=== PATIENT | female | born 2000 | race Hispanic/Latino ===

== ENCOUNTER 2021-05-26 14:27 | Outpatient (CLI) | payer OTHER, SELFPAY ==
--- NOTE | ~2021-05-26 | US_ITS ---
EXAMINATION: US OB <= 14 weeks fetus DATE: 05/26/2021 15:11 INDICATION: Routine care, first trimester TECHNIQUE: Real-time pelvic transabdominal and transvaginal ultrasound was performed. COMPARISON: None. FINDINGS: The uterus measures 15.7 x 10.3 x 6.1 cm. There is an intrauterine gestational sac. A yolk sac is identified. heart motion is identified measuring 144 beats per minute (bpm) by M-mode D oppler. The crown rump length measures 6.9 cm , which correlates with an estimated gestational age of 13 weeks and 1 day(s) (+/-) 8 day(s). The right ovary measures 3.8 x 3.5 x 2.0 cm. The left ovary measures 4.1 x 2.9 x 1.9 cm. There is nor mal vascular flow in the ovaries. There is no free fluid in the pelvis. IMPRESSION: 1. Live intrauterine with an estimated gestational age of 13 weeks and 1 day(s) (+/-) 8 day (s) and an estimated delivery date of 11/30/2021. Reviewed, dictated and finalized at location B. GER [employer] IMPRESSION: 1. Live intrauterine with an estimated gestational age of 13 weeks an d 1 day(s) (+/-) 8 day(s) and an estimated delivery date of 11/30/2021.
== END 2021-05-26 14:28 | disposition home or self-care (01) ==
LOC: ANHIMG 14:33
PROVIDERS: PCP Physician Assistant; Visit Provider Obstetrics & Gynecology
DX: Z34.91 Encounter for supervision of normal pregnancy, unspecified, first trimester (principal); Z3A.13 13 weeks gestation of pregnancy
CPT/HCPCS: 76801

== ENCOUNTER 2021-06-16 16:50 | Emergency (ER) | payer OTHER, SELFPAY ==
[2021-06-16 17:00] VITALS: BP 121/63; PULSE 71; RESP 16; TEMP 36.5; O2SAT 100
[2021-06-16 18:55] VITALS: BP 128/63; PULSE 76; RESP 16; TEMP 36.6; O2SAT 100
--- NOTE | 2021-06-16 20:33 | ED.FALL ---
HPI - Fall General Chief Complaint: Fall Stated Complaint: fall/15 weeks ,groin paon Time Seen by Provider: 06/16/21 20:30 Source: patient History of Present Illness HPI Narrative: Patient presents after ground level fall. She approximatly 15 wks by US . Patient was walking at work taking to her friend when she tripped on a pole and fell to the ground landiing on the R hip. She denies striking her head or any LOC. She denies vaginal bleeding, she reports her pain is improving since the incedent. she denies difficulty ambulating, focal numbness or weakness. She has seen her OB for her initial appointment and is Rh + Related Data Allergies Allergy/AdvReac Type Severity Reaction Status Date / Time No Known Allergies Allergy Unverified 11/22/17 14:00 Review of Systems Review of Systems: All systems reviewed & are unremarkable except as noted in HPI and below PMFSH Past Medical History Medical History (Updated 06/16/21 @ 20:47 by Oli Julian MD) Patient denies significant medical history Social History Social History (Updated 06/16/21 @ 20:36 by Oli Julian MD) Smoking status: Never smoker Exam Const: General: no acute distress Orientation/consciousness: patient oriented x3 HENMT: Head: normal to inspection Ears: external ears normal Mouth: Yes lip normal Eyes: Conjunctivae: conjunctivae normal Pupils: Equal, round and reactive pupils present EOM: EOMs intact bilaterally Neck: Neck: normal visual inspection Chest: Chest palpation & inspection: normal inspection of the chest Resp: Effort & Inspection: normal respiratory effort and not tachypneic Cardio: Rate: regular rate Rhythm: regular rhythm GI: Inspection: non-distended GI Palp: Yes Soft to palpation, No Tenderness to palpation present (GI), No Guarding due to palpation present (GI) and No Rigid due to palpation Skin: General skin exam: normal color and no jaundice Rashes: no rashes Wounds: no wounds Neuro: General: patient oriented x3 and moves all extremities Speech: normal speech Gait exam (Neuro): Normal gait present Extrem: General: normal to inspection and pedal edema present Psych: Mental Status: mental status grossly normal Affect: normal affect Course Vital Signs Vital signs: Vital Signs Temperature 36.5 C 06/16/21 17:00 Pulse Rate 71 06/16/21 17:00 Respiratory Rate 16 06/16/21 17:00 Blood Pressure 121/63 06/16/21 17:00 Pulse Oximetry 100 06/16/21 17:00 Temperature 36.6 C 06/16/21 18:55 Pulse Rate 72 06/16/21 20:58 Respiratory Rate 16 06/16/21 20:58 Blood Pressure 112/60 06/16/21 20:58 Pulse Oximetry 100 06/16/21 20:58 MDM - Fall MDM Narrative Medical decision making narrative: H&P as above, vss, pt looks clinically well, exam w/o acute abdomen, FHR of 145 on doppler, additional labs/img considered, symptomatic relief available as needed, on reevaluation pt continues to looks clinically well. Suspect mechanical event with contusion, dns abruption, fracture, dislocation, major neurovascular compromise. plan to tx/monitor as op w/ pcm f/u findings/plan discussed with pt, pt agree/comfortable with plan, return precautions given Discharge Plan Discharge Clinical Impression: Fall Qualifiers: Encounter type: initial encounter Qualified Code(s): W19.XXXA - Unspecified fall, initial encounter Patient Disposition: Home, Self-Care Condition: Improved Instructions: Antibiotic Form, Contusion in Adults (ED) Additional Instructions: Please return if your symptoms worsen or fail to improve. If you develop a fever, can not eat/drink anything or if you have any other concerns. Please follow up with your OB Follow-up/Referrals: Andrew,MARINO Woody [Primary Care Provider] - Time of Disposition: 20:47
[2021-06-16 20:58] VITALS: BP 112/60; PULSE 72; RESP 16; O2SAT 100
== END 2021-06-16 21:04 | disposition home or self-care (01) ==
LOC: ANHED 21:02
PROVIDERS: Emergency Provider Emergency Medicine; PCP Physician Assistant
DX: O9A.212 Injury, poisoning and certain other consequences of external causes complicating pregnancy, second trimester (principal); R10.30 Lower abdominal pain, unspecified; Z3A.15 15 weeks gestation of pregnancy; W18.39XA Other fall on same level, initial encounter
CPT/HCPCS: 99282

== ENCOUNTER 2022-05-04 09:23 | Outpatient (CLI) | payer OTHER, SELFPAY ==
--- NOTE | ~2022-05-04 | US_ITS ---
EXAMINATION: US right upper quadrant DATE: 05/04/2022 09:56 INDICATION: Right upper quadrant pain TECHNIQUE: Multiple grayscale and Doppler ultrasound images of the abdomen were obtained. COMPARISON: None available FINDINGS: The head, body, and tail of the pancreas are normal. The liver demonstrates increased echog enicity, heterogenous echotexture, and decreased through transmission. No surface nodularity. Normal hepatopetal flow in the main portal vein. Stones and sludge are present in the nondistended gallbladd er. There is no gallbladder wall thickening or pericholecystic fluid. The normal common bile duct radha sures 3 mm. There was no sonographic Ruiz sign. IMPRESSION: 1. Stones and sludge in the otherwise normal gallbladder. 2. Diffuse hepatic steatosis. Reviewed, dictated and finalized at location B.
== END 2022-05-04 09:24 | disposition home or self-care (01) ==
PROVIDERS: PCP Physician Assistant; Visit Provider Physician Assistant
DX: R74.8 Abnormal levels of other serum enzymes (principal); K76.0 Fatty (change of) liver, not elsewhere classified
CPT/HCPCS: 76705

== ENCOUNTER 2023-01-21 14:27 | Outpatient (CLI) | payer OTHER, SELFPAY ==
--- NOTE | ~2023-01-21 | CT_ITS ---
EXAMINATION: CT soft tissue neck w con DATE: 01/21/2023 14:51 INDICATION: Acute sialadenitis. Submandibular swelling. TECHNIQUE: Computed tomography (CT) of the neck was performed with 75 mL Omnipaque-350 intravenous co ntrast. Automated exposure control and iterative reconstruction technique were employed. The dose-johann gth product was 626.48 mGy-cm. COMPARISON: None FINDINGS: There is mild bilateral high internal jugular chain lymphadenopathy. A skin marker overlies a mildly enlarged submandibular lymph node at the midline measuring 14 x 10 mm. The cervical carotid arteries are normal. The major salivary glands are normal. No sialolith. There is a mucous retention cyst in left maxillary sinus. The mastoid air cells are normal. Median sternotomy wires are noted. IMPRESSION: 1. Mild bilateral cervical lymphadenopathy, likely reactive. Reviewed, dictated and finalized at location E.
== END 2023-01-21 14:28 | disposition home or self-care (01) ==
PROVIDERS: PCP Physician Assistant; Visit Provider Physician Assistant
DX: K11.21 Acute sialoadenitis (principal); R59.0 Localized enlarged lymph nodes
CPT/HCPCS: 70491; Q9967

== ENCOUNTER 2023-12-28 12:21 | Inpatient (IN) | payer OTHER, SELFPAY ==
--- NOTE | ~2023-12-28 | US_ITS ---
US right upper quadrant DATE: 12/28/2023 13:30 INDICATION: Abdominal pain TECHNIQUE: Real-time imaging of the liver, pancreas, gallbladder COMPARISON: 05/04/2022 right upper quadrant abdominal ultrasound examination FINDINGS: Hepatic steatosis. No hepatic space-occupying mass lesion is evident. Normal hepatopedal po rtal venous flow direction. There are small stones in the dependent aspect of the gallbladder, shadowing. No gallbladder wall thi ckening or abnormal pericholecystic fluid collection. Negative sonographic Ruiz sign. The common bile duct measures 5 mm, within normal limits. IMPRESSION: Cholelithiasis Hepatic steatosis Reviewed, dictated and finalized at Location A. Reviewed, dictated and finalized at location A.
--- NOTE | ~2023-12-28 | XR_ITS ---
EXAMINATION: XR ERCP DATE: 12/31/2023 13:00 CDT INDICATION: POSSIBLE STONES . TECHNIQUE: 2 fluoroscopic images of the right upper quadrant were obtained during ERCP, performed by Dr. Santiago. I was not present during the procedure. Fluoroscopy exposure time was 79.1 secon ds. Air Kerma 27.28 mGy. DAP [id number] mGym2. COMPARISON: 12/30/2023 FINDINGS/IMPRESSION: Fluoroscopic documentation of ERCP. Please refer to the operative note for complete procedural detail s . Reviewed, dictated and finalized at location K.
--- NOTE | ~2023-12-28 | XR_ITS ---
EXAMINATION: XR cholangiogram surg 1st inj DATE: 12/30/2023 09:20 INDICATION: Cholelithiasis. TECHNIQUE: 170 fluoroscopic images of the right upper quadrant were obtained during intraoperative ch olangiography performed by the surgeon. I was not present in the operating room. Fluoroscopy exposure time was 25 seconds. COMPARISON: Abdomen ultrasound 12/28/2023 FINDINGS: There is a catheter in the cystic duct. There is mild intrahepatic and extrahepatic biliary duct dilatation. There is a 5 mm stone in the distal common bile duct. A small volume of contrast pa sses to the duodenum. IMPRESSION: 1. 5 mm stone in the distal common bile duct with mild intrahepatic and extrahepatic biliary duct dil atation. Reviewed, dictated and finalized at location E. IMPRESSION: 1. 5 mm stone in the distal common bile duct with mild intrahepatic and extrahe patic biliary duct dilatation.
[2023-12-28 12:34] VITALS: BP 115/63; PULSE 78; RESP 16; TEMP 36.9; O2SAT 98
[2023-12-28 13:14] LABS: Basophils Percent Auto 0.2 % (0.2-1.2); Eosinophils Percent Auto 0.3 % (0-4.4); Hematocrit 38.5 % (37.0-47.0); Hemoglobin 13.3 g/dL (12.0-15.0); Immature Granulocyte Absolute 0.07 K/mm3 (0.00-0.031); Immature Granulocyte Percent A 0.5 % (0-0.5); Lymphocytes Percent Auto 10.6 % (18.3-44.2); Mean Corpuscular HGB Conc 34.5 g/dl (32-36); Mean Corpuscular Volume 86.7 fl (80-100); Monocytes Absolute Auto 0.5 K/mm3 (0.1-0.6); Monocytes Percent Auto 3.5 % (2.6-8.5); Neutrophils Percent Auto 84.9 % (45.5-73.1); Platelet Count Result 292 k/mm3 (150-375); Red Blood Count 4.44 M/mm3 (4.2-5.4); White Blood Count 14.1 K/mm3 (4.5-10.0)
[2023-12-28 13:25] LABS: Alanine Aminotransferase 151 U/L (6-35); Albumin Level 4.6 g/dL (3.5-5.1); Alkaline Phosphatase 77 U/L (38-126); Anion Gap 10 mmol/L (4-12); Aspartate Amino Transferase 141 U/L (14-36); Blood Urea Nitrogen 13 mg/dL (7-17); Carbon Dioxide 24 mmol/L (22-30); Chloride 104 mmol/L (98-107); Estimated CRCL calculation 157 ml/min; Estimated Glomerular Filt Rate > 60; Glucose 124 mg/dL (65-110); Lipase 89 U/L (23-300); Potassium 3.8 mmol/L (3.4-5.0); Sodium 138 mmol/L (137-145)
--- NOTE | 2023-12-28 15:00 | ED.ABDPAIN ---
HPI - Abdominal Pain General Chief Complaint: Abdominal Pain Stated Complaint: epigastric pain Time Seen by Provider: 12/28/23 12:44 History of Present Illness HPI narrative: Patient is a 23-year-old female who presents ER with epigastric and right upper quadrant pain. Intermittent over last couple days but persistent today. Worse after eating foods. No fevers or chills. Has known gallbladder stones but has not made an appointment to have her gallbladder removed. Related Data Allergies Allergy/AdvReac Type Severity Reaction Status Date / Time No Known Allergies Allergy Unverified 10/23/22 08:29 Review of Systems Review of Systems: All systems reviewed & are unremarkable except as noted in HPI and below Constitutional: Constitutional: Reports no additional constitutional complaints Cardiovascular: Cardiovascular: Reports no additional cardiovascular complaints Respiratory: Respiratory: Reports no additional respiratory complaints Gastrointestinal: Gastrointestinal: Reports abdominal pain, Denies diarrhea, Denies nausea and Denies vomiting Genitourinary: Genitourinary: Reports no additional female genitourinary complaints Integumentary/Breasts: Skin/Breast: Reports system reviewed and no additional complaints, except as docu [facility] Past Medical History Medical History (Updated 12/28/23 @ 15:58 by Juan Antonio Ron MD) Patient denies significant medical history Surgical History Surgical History (Updated 12/28/23 @ 15:56 by Juan Antonio Ron MD) No history of previous surgery Social History Social History (System 10/23/22 @ 08:29 by Michael Prabhakar) Smoking status: Never smoker Exam Narrative: GENERAL: Well-appearing, obese, and in no acute distress. HEAD: Normocephalic, atraumatic. ENT: Mucous membranes moist. CHEST: Clear to auscultation. No respiratory distress. HEART: Regular rate and rhythm. Normal peripheral pulses. ABDOMEN: Soft, tender palpation right upper quadrant with guarding as well as epigastrium, nondistended, normal active bowel sounds. EXTREMITIES: Normal range of motion. No edema. SKIN: Warm, dry, no rash. NEURO: Alert and oriented x3. PSYCH: Normal mood and affect. Course Course Emergency Course: Persistent pain despite pain medication. Discussed with General surgery. Admit for observation with IV antibiotics. Clear liquid diet. Vital Signs Vital signs: Vital Signs Temperature 98.4 F 12/28/23 12:34 Pulse Rate 78 12/28/23 12:34 Respiratory Rate 16 12/28/23 12:34 Blood Pressure 115/63 12/28/23 12:34 Pulse Oximetry 98 12/28/23 12:34 Oxygen Delivery Room Air 12/28/23 12:34 Temperature 98.4 F 12/28/23 12:34 Pulse Rate 76 12/28/23 15:27 Respiratory Rate 18 12/28/23 15:27 Blood Pressure 127/78 12/28/23 15:27 Pulse Oximetry 100 12/28/23 15:27 Oxygen Delivery Room Air 12/28/23 12:34 MDM - Abdominal Pain Lab Data 12/28/23 13:00 12/28/23 13:00 Labs: Lab Results 12/28/23 Range/Units 13:00 WBC 14.1 H (4.5-10.0) K/mm3 RBC 4.44 (4.2-5.4) M/mm3 Hgb 13.3 (12.0-15.0) g/dL Hct 38.5 (37.0-47.0) % MCV 86.7 (80-100) fl MCH 30.0 (26-34) pg MCHC 34.5 (32-36) g/dl RDW 12.0 (11.5-14.5) % Plt Count 292 (150-375) k/mm3 MPV 9.0 (7.4-10.4) fl Immature Gran % (Auto) 0.5 (0-0.5) % Neut % (Auto) 84.9 H (45.5-73.1) % Lymph % (Auto) 10.6 L (18.3-44.2) % Wake % (Auto) 3.5 (2.6-8.5) % Eos % (Auto) 0.3 (0-4.4) % Baso % (Auto) 0.2 (0.2-1.2) % Lymph # (Auto) 1.50 (0.9-3.2) K/mm3 Wake # (Auto) 0.5 (0.1-0.6) K/mm3 Eos # (Auto) 0.0 (0-0.3) K/mm3 Baso # (Auto) 0.0 (0.0-0.1) K/mm3 Abs Immat Gran (auto) 0.07 H (0.00-0.031) K/mm3 Absolute Neuts (auto) 12.0 H (1.3-6.7) K/mm3 Absolute Nucleated RBC 0.000 (0.0-0.012) K/mm3 Nucleated RBC % 0.0 (0.0-0.2) % Sodium 138 (137-145) mmol/L Potassium 3.8 (3.4-5.0) mmol/L Chloride 104 (98
[2023-12-28 15:27] VITALS: BP 127/78; PULSE 76; RESP 18; O2SAT 100
[2023-12-28] MEDS: metroNIDAZOLE 500 MG/ISO 100ML 500 MG/100 ML BAG 100 MG IVPB ×2 (15:30→23:22)
[2023-12-28] MEDS: MORPHINE SULFATE (*CRX) 4 MG/ML INJ IV PUSH (15:34)
--- NOTE | 2023-12-28 16:11 | ADMGEN ---
This patient, Michelle Patino, was admitted to [facility] Surg Room 309-01. Patient/family oriented to hospital policies and general routines including ID bracelet, bed and alarms, visiting hours, pain management, procedures, bathroom and other care routines, personal items, smoking policy, room service/diet, and visiting hours. Information on how to activate the Rapid Response Team has been discussed. Patient/Family are encouraged to report perceived risks to care and to ask questions if they do not understand what they are told or what they should do.
[2023-12-28 16:32] VITALS: BP 116/59; PULSE 77; RESP 16; TEMP 36.7; O2SAT 99; BMI 46.5
[2023-12-28 20:00] VITALS: PULSE 77; RESP 16; O2SAT 99
[2023-12-28] MEDS: MORPHINE SULFATE (*CRX) 2 MG/ML INJ IV PUSH (20:29)
--- NOTE | 2023-12-28 20:59 | PC.NURSE ---
When I entered the room at approximately 2034 to give pt requested pain med, there were literally 10 people in the room with several screaming children. Pt in adjacent rooms were complaining about the shrieking children. I very politely asked if they were aware that visiting ended at 8pm. They stated that they were about to leave. One of the people in the room indicated that she was planning on spending the night. I explained that special permission from the supervisor tank house would have to be gotten and then she would have to register downstairs as an overnight visitor. She stated she would leave. I administered the pain med asked pt if there was anything else that I could do for her and made her aware that I would be back to give an IV antibiotic around midnight. Pt said that she was good.
[2023-12-28 22:00] VITALS: BP 126/60; PULSE 71; RESP 16; TEMP 36.6; O2SAT 97
[2023-12-29 04:59] VITALS: BP 116/66; PULSE 85; RESP 16; TEMP 36.4; O2SAT 99
[2023-12-29] MEDS: MORPHINE SULFATE (*CRX) 2 MG/ML INJ IV PUSH ×3 (08:44→21:13)
[2023-12-29] MEDS: metroNIDAZOLE 500 MG/ISO 100ML 500 MG/100 ML BAG 100 MG IVPB ×3 (08:45→21:08)
--- NOTE | 2023-12-29 12:53 | PM.IMHP ---
H&P: HPI History of Present Illness Date/Time: 12/29/23 12:53 Chief Complaint: Epigastric pain Narrative: This is a 23-year-old woman who presented to the emergency department yesterday with epigastric pain that started the night before. She states that she had eaten dinner and shortly after that began experiencing the epigastric pain. She took some [id number] Pepto-Bismol and felt a little bit better and was able to sleep that night. She had gone to the gym Saturday morning and ate a rice crispy treat and began experiencing worsening constant pain. Her pain has persisted since being admitted. She denied any fevers or chills. She was experiencing nausea with vomiting. She denies any change in bowel habits. Patient had been having some mild pains like this over the past year but nothing this severe. In the emergency department she was noted to have an elevated white blood count and slightly elevated liver enzymes. She denies any prior history of liver problems. Review of Systems Review of Systems: All systems reviewed & are unremarkable except as noted in HPI and below Constitutional: Constitutional: Denies chills and Denies fever(s) Eyes: Eyes: Denies change in vision ENT: Denies hearing loss, Denies neck pain and Denies sore throat Cardiovascular: Cardiovascular: Denies chest pain and Denies dyspnea Respiratory: Respiratory: Denies cough, Denies dyspnea and Denies wheezing Gastrointestinal: Gastrointestinal: Reports as per HPI Genitourinary: Genitourinary: Denies hematuria and Denies dysuria Musculoskeletal: Musculoskeletal: Denies arthralgias, Denies joint swelling and Denies neck pain Allergic/Immunologic: Allergic/Immunologic: Denies wheezing [facility] Surgical History Surgical History History of ventricular septal defect repair Family History Family History Mother Thyroid cancer Social History Social History Smoking status: Never smoker Alcohol intake: current Drinks per week: 1 Substance use: never Do You Feel Safe in your Home?: Yes Lack of Transportation: No Lack of Food: Never True Current Housing: I Have Housing Concerned About Future Housing: No Difficulty Paying Gas/Electric Bills: No Difficulty Paying for Meds: No Currently Unemployed: No Education: Associate Degree Difficulty w/ Childcare or Family Care: No Spiritual care concerns: No Meds Home Medications and Allergies Home Medications Medication Instructions Recorded Confirmed Type No Home Medications 12/28/23 12/28/23 History Allergies Allergy/AdvReac Type Severity Reaction Status Date / Time No Known Allergies Allergy Verified 12/28/23 16:50 Vital Signs Vital Signs - 24 hr 12/28/23 15:27 12/28/23 16:32 12/28/23 20:00 Temperature 36.7 C Pulse Rate 76 77 77 Respiratory Rate 18 16 16 Blood Pressure 127/78 116/59 L Pulse Oximetry 100 99 99 Oxygen Delivery Room Air 12/28/23 22:00 12/29/23 04:59 12/29/23 08:40 Temperature 36.6 C 36.4 C Pulse Rate 71 85 Respiratory Rate 16 16 Blood Pressure 126/60 116/66 Pulse Oximetry 97 99 Oxygen Delivery Room Air Exam Const: General: alert; No acute distress Orientation/consciousness: patient oriented x3 Limitations: no limitations HENMT: Head: normocephalic and atraumatic Ears: hearing grossly normal bilaterally Face/Nose/Sinus: Normal external nose present and Normal nares present Mouth: Yes Normal oral and palatal mucosa present and Yes moist mucous membranes Eyes: General: appearance normal, both eyes and all related structures Conjunctivae: conjunctivae normal Sclera: sclerae normal Pupils: Equal, round and reactive pupils present EOM: EOMs intact bilaterally Neck: Neck: normal visual inspection, full ROM, no lymphadenopathy, supple an
[2023-12-29 14:00] VITALS: BP 119/79; PULSE 64; RESP 16; TEMP 36.5; O2SAT 99
[2023-12-29 21:33] VITALS: BP 134/75; PULSE 62; RESP 16; TEMP 36.1; O2SAT 100
[2023-12-30] VITALS (17 sets, daily range): BP systolic 105–131; BP diastolic 44–77; PULSE 67–87; RESP 16–22; TEMP 36–37; O2SAT 93–100
[2023-12-30] MEDS: metroNIDAZOLE 500 MG/ISO 100ML 500 MG/100 ML BAG 100 MG IVPB ×3 (05:41→21:10)
[2023-12-30 06:20] LABS: Hematocrit 39.9 % (37.0-47.0); Hemoglobin 13.2 g/dL (12.0-15.0); Mean Corpuscular HGB Conc 33.1 g/dl (32-36); Mean Corpuscular Hemoglobin 29.1 pg (26-34); Mean Corpuscular Volume 87.9 fl (80-100); Mean Platelet Volume 9.1 fl (7.4-10.4); Platelet Count Result 300 k/mm3 (150-375); Red Blood Count 4.54 M/mm3 (4.2-5.4); White Blood Count 6.1 K/mm3 (4.5-10.0)
[2023-12-30 06:32] LABS: Alanine Aminotransferase 243 U/L (6-35); Albumin Level 4.5 g/dL (3.5-5.1); Alkaline Phosphatase 72 U/L (38-126); Anion Gap 7 mmol/L (4-12); Aspartate Amino Transferase 174 U/L (14-36); Bilirubin,Total 0.8 mg/dL (0.2-1.3); Blood Urea Nitrogen 6 mg/dL (7-17); Carbon Dioxide 27 mmol/L (22-30); Chloride 104 mmol/L (98-107); Estimated CRCL calculation 142 ml/min; Estimated Glomerular Filt Rate > 60; Glucose 92 mg/dL (65-110); Potassium 3.8 mmol/L (3.4-5.0); Sodium 138 mmol/L (137-145)
--- NOTE | 2023-12-30 07:27 | WPDANESEPPF ---
Anes - Initial Pre Proc Eval Procedure: Operation Date: 12/30/23 14:30 Proposed Procedures p Laparoscopic Cholecystectomy with Intraoperative Cholangiogram - Tc Carpio DO Date/Time: 12/30/23 07:27 Surgeon: Tc Carpio DO Pre Op Diagnosis: cholecystitis Patient Data Age: 23 Gender: F Height: 1.55 m Weight: 111.6 kg Last Vital Signs Temp 36.0 C L 12/30/23 05:02 Pulse 68 12/30/23 05:02 Resp 16 12/30/23 05:02 BP 105/64 12/30/23 05:02 Pulse Ox 100 12/30/23 05:02 O2 Del Method Room Air 12/29/23 20:00 Allergies Allergy/AdvReac Type Severity Reaction Status Date / Time No Known Allergies Allergy Verified 12/30/23 07:53 Home Medications Medication Instructions Recorded Confirmed Type No Home Medications 12/28/23 12/28/23 History Laboratory Tests 12/30/23 05:41 WBC 6.1 K/mm3 (4.5-10.0) RBC 4.54 M/mm3 (4.2-5.4) Hgb 13.2 g/dL (12.0-15.0) Hct 39.9 % (37.0-47.0) MCV 87.9 fl (80-100) MCH 29.1 pg (26-34) MCHC 33.1 g/dl (32-36) RDW 12.0 % (11.5-14.5) Plt Count 300 k/mm3 (150-375) MPV 9.1 fl (7.4-10.4) Sodium 138 mmol/L (137-145) Potassium 3.8 mmol/L (3.4-5.0) Chloride 104 mmol/L (98-107) Carbon Dioxide 27 mmol/L (22-30) Anion Gap 7 mmol/L (4-12) BUN 6 L D mg/dL (7-17) Creatinine 0.60 L mg/dL (0.7-1.0) Estim Creat Clear Calc 142 ml/min Estimated GFR > 60 (59 - ) Glucose 92 mg/dL (65-110) Calcium 9.0 mg/dL (8.4-10.2) Total Bilirubin 0.8 mg/dL (0.2-1.3) AST 174 H U/L (14-36) ALT 243 H U/L (6-35) Alkaline Phosphatase 72 U/L (38-126) Total Protein 8.0 g/dL (6.3-8.2) Albumin 4.5 g/dL (3.5-5.1) Patient hx anesthesia problems: none Family hx anesthesia problems: none Results Review: All pre-operative results and documents have been reviewed as part of the pre-operative evaluation. [facility] Past Medical History Medical History (Updated 12/30/23 @ 08:13 by Don Rangel DO) Motion sickness Surgical History Surgical History History of ventricular septal defect repair Family History Family History Mother Thyroid cancer Social History Social History Smoking status: Never smoker Alcohol intake: current Drinks per week: 1 Substance use: never Do You Feel Safe in your Home?: Yes Lack of Transportation: No Lack of Food: Never True Current Housing: I Have Housing Concerned About Future Housing: No Difficulty Paying Gas/Electric Bills: No Difficulty Paying for Meds: No Currently Unemployed: No Education: Associate Degree Difficulty w/ Childcare or Family Care: No Spiritual care concerns: No Anes - Eval Final PreProcedure Day of Procedure 12/30/23 07:27 Patient weight: morbidly obese Heart: regular rate and rhythm Lungs: clear to auscultation Airway: Mallampati scale class 1 Neurological: alert and oriented Last oral intake: >/= 8 hours ASA classification: III Emergent: no Anesthetic plan: proceed Anesthesia type and monitoring: general ETT and standard monitoring Results Review: All pre-operative results and documents have been reviewed as part of the pre-operative evaluation. Informed Consent: The patient's anesthetic plan and its attendant risks and benefits were discussed with the patient/family/POA. Questions were solicited and answers provided to the satisfaction of the patient/family/POA.
--- NOTE | 2023-12-30 07:53 | WPDHPUPDATE1 ---
History and Physical Update Update Date/Time: 12/30/23 07:53 History and Physical has been reviewed, including an updated exam of the patient. There are NO changes in the patient's condition. Risks, benefits, and alternatives have been discussed and questions answered. Patient agrees to proceed with procedure.
[2023-12-30] MEDS: LACTATED RINGERS 1,000 ML 30 ML IV CONT (08:02)
[2023-12-30] MEDS: SCOPOLAMINE 1 MG PATCH 1 PATCH TRANSDERM (08:10)
[2023-12-30] MEDS: BUPIVACAINE/EPINEPHRINE 0.5% 50 ML VIAL 30 ML INFILTRATE (08:45)
--- NOTE | 2023-12-30 09:08 | W.PM.PROC2 ---
Procedure Note - Detailed Date of Procedure 12/30/23 Pre-op Diagnosis acute cholecystitis, elevated liver enzymes Post-op Diagnosis Other (Choledocholithiasis) Procedure Performed Laparoscopic Cholecystectomy with intraoperative cholangiogram Surgeon Tc Carpio DO Anesthesia General and Local (0.5% bupivacaine) Indications This is a 23-year-old woman who presented to the emergency department on 12/28/2023 with epigastric abdominal pain that started the night before. Imaging in the emergency department showed evidence of cholelithiasis. She had an elevated white blood count and elevated transaminases. She was admitted for further treatment. Discussions were made with the patient about treatment options and decision was made to proceed with laparoscopic cholecystectomy with intraoperative cholangiogram, possible open. Findings Laparoscopic cholecystectomy with cholangiography was performed. The gallbladder was dilated and contained a couple gallstones. There was no significant pericholecystic adhesions. The cystic duct appeared normal in size. Intraoperative cholangiogram was performed and this showed evidence of a distal common bile duct filling defect measuring 5 mm. The gallbladder was removed and sent to the lab for pathology. Description of Procedure Procedure as well as risks, benefits, and alternatives were discussed with patient. Written consent was obtained and placed in chart prior to procedure. The patient was brought back to surgical suite. Patient was placed in supine position on operating table. Time-out was done to confirm patient and procedure. Patient was then intubated by the anesthesia department. Abdomen was prepped and draped in sterile fashion using chlorhexidine prep. 0.5% bupivacaine with epinephrine was infiltrated at each site of incision. A 5 millimeter incision was made near the umbilicus, and a 5 millimeter Optiview trocar was advanced through the abdominal layers under direct visualization. Once inside the abdominal cavity, carbon dioxide was insufflated to create a pneumoperitoneum. The camera was inserted and the abdomen was inspected. No immediate abnormalities were identified. The patient was placed in reverse Trendelenburg position and rotated slightly to the left. An 11 millimeter incision was made in the subxiphoid region, and an 11 millimeter trocar was inserted under direct visualization. Two 5 millimeter incisions were made in the right upper quadrant, and two 5 millimeter trocars were inserted under direct visualization. The gallbladder was identified and grasped at the fundus and retracted superiorly. It was then grasped at the infundibulum retracted laterally. Careful dissection around the neck of the gallbladder was performed using blunt dissection with a [place] grasper and hook electrocautery. The cystic duct was identified, and a window was created behind it. The cystic artery was also identified and a window was created behind it. The critical view of safety was identified, visualizing the cystic duct running directly into the neck of the gallbladder, and the cystic artery running directly into the wall of the gallbladder. A 5 millimeter clip resaw carriage operator was then used to place 2 clips proximally and 1 clip distally on the cystic artery. It was then transected using endoscopic scissors. The [place] clamp was then placed across the neck of the gallbladder and the [place] cholangiocatheter was advanced into the distal neck of the gallbladder. The catheter flushed with saline with ease. The patient was then flattened out in bed and fluoroscopy was used with Omnipaque contrast to obtain a cholangiogram. The images were sent to the radiologist for interpretation. The patient was then placed back in reverse Trendelenburg position. A 5 mm Endoclip resaw carriage operator was used to place 2 clips proximally and 1 clip distally on the cystic duct. It was then transected using endoscopic scissors. Once safely away fr
[2023-12-30] MEDS: fentaNYL CITRATE INJ (*CRX) 100 MCG/2 ML VIAL 25 MCG IV PUSH ×4 (09:50→10:07)
[2023-12-30] MEDS: LACTATED RINGERS 1,000 ML 100 ML IV CONT (11:27)
[2023-12-30] MEDS: HYDROcodone/acetaminophen (*CRX) 5-325 MG TABLET 1 TAB PO (12:16)
--- NOTE | 2023-12-30 17:10 | WPDGICN ---
Assessment and Plan Assessment and plan (1) Acute calculous cholecystitis: Code(s): K80.00 - Calculus of gallbladder with acute cholecystitis without obstruction Status: Acute Assessment and Plan: s/p lap sis but abnormal IOC (2) Choledocholithiasis: Code(s): K80.50 - Calculus of bile duct without cholangitis or cholecystitis without obstruction Status: Acute Assessment and Plan: stone in bile duct confirmed by IOC ERCP tomorrow, patient is agreeable, explained risk and benefits including but not limited to pancreatitis (3) Transaminitis: Code(s): R74.01 - Elevation of levels of liver transaminase levels Status: Acute Assessment and Plan: biliary related ercp tomorrow (4) Nausea and vomiting in adult: Code(s): R11.2 - Nausea with vomiting, unspecified Status: Acute Assessment and Plan: better (5) History of ventricular septal defect repair: Code(s): Z87.74 - Personal history of (corrected) congenital malformations of heart and circulatory system Status: Acute (6) Epigastric pain: Code(s): R10.13 - Epigastric pain Status: Acute GI Consult Note Consult date/time: 12/30/23 17:10 Reason for consult: abdominal pain, elevated liver enzymes, choledocholithiasis. HPI: Michelle Patino is a 23 year old female h/o VSD s/p repair here with new onset of progressive epigastric pain that got severe after eating then nausea with vomiting, ER found wbc 14k, transaminases 100-200 with normal bili, imaging showed cholecystitis and started on abx then taken for lap sis today, IOC found 5 mm stone in bile duct. Denies history of pancreatitis, feeling better after surgery. Review of Systems Constitutional: Constitutional: Denies night sweats Eyes: Eyes: Denies blurry vision ENT: Reports Normal hearing present, Denies headache(s) and Denies neck pain Cardiovascular: Cardiovascular: Denies chest pain and Denies dyspnea Respiratory: Respiratory: Denies dyspnea Gastrointestinal: Gastrointestinal: Reports abdominal pain, Reports nausea and Reports vomiting Genitourinary: Genitourinary: Denies dysuria Musculoskeletal: Musculoskeletal: Denies neck pain Integumentary/Breasts: Skin/Breast: Denies dry skin Neurologic: Reports Normal hearing present, Denies headache(s) and Denies weakness Psychiatric: Psychiatric: Denies anxiety Endocrine: Endocrine: Denies change in body appearance Hematologic/Lymphatic: Hematologic/Lymphatic: Denies easy bleeding Allergic/Immunologic: Allergic/Immunologic: Denies urticaria PMFSH Past Medical History Medical History (Updated 12/30/23 @ 17:13 by Delbert Santiago MD) Choledocholithiasis Epigastric pain Motion sickness Nausea and vomiting in adult Surgical History Surgical History (Updated 12/30/23 @ 17:13 by Delbert Santiago MD) History of ventricular septal defect repair Family History Family History Mother Thyroid cancer Social History Social History Smoking status: Never smoker Alcohol intake: current Drinks per week: 1 Substance use: never Do You Feel Safe in your Home?: Yes Lack of Transportation: No Lack of Food: Never True Current Housing: I Have Housing Concerned About Future Housing: No Difficulty Paying Gas/Electric Bills: No Difficulty Paying for Meds: No Currently Unemployed: No Education: Associate Degree Difficulty w/ Childcare or Family Care: No Spiritual care concerns: No Meds Home Medications and Allergies Home Medications Medication Instructions Recorded Confirmed Type No Home Medications 12/28/23 12/28/23 History Allergies Allergy/AdvReac Type Severity Reaction Status Date / Time No Known Allergies Allergy Verified 12/30/23 07:53 Vital Signs Vital Signs - 23
[2023-12-30] MEDS: MORPHINE SULFATE (*CRX) 2 MG/ML INJ IV PUSH (17:20)
[2023-12-30] MEDS: HYDROcodone/acetaminophen (*CRX) 7.5-325 MG TABLET 1 TAB PO (22:44)
[2023-12-31] VITALS (14 sets, daily range): BP systolic 106–136; BP diastolic 50–73; PULSE 55–71; RESP 16–27; TEMP 35.6–36.6; O2SAT 94–100
[2023-12-31] MEDS: metroNIDAZOLE 500 MG/ISO 100ML 500 MG/100 ML BAG 100 MG IVPB ×3 (05:39→21:46)
[2023-12-31 06:31] LABS: Hematocrit 37.2 % (37.0-47.0); Hemoglobin 12.5 g/dL (12.0-15.0); Mean Corpuscular HGB Conc 33.6 g/dl (32-36); Mean Corpuscular Hemoglobin 29.4 pg (26-34); Mean Corpuscular Volume 87.5 fl (80-100); Mean Platelet Volume 9.3 fl (7.4-10.4); Platelet Count Result 282 k/mm3 (150-375); Red Blood Count 4.25 M/mm3 (4.2-5.4); Red Cell Distribution Width 12.2 % (11.5-14.5); White Blood Count 8.4 K/mm3 (4.5-10.0)
[2023-12-31 06:48] LABS: Alanine Aminotransferase 401 U/L (6-35); Albumin Level 4.4 g/dL (3.5-5.1); Alkaline Phosphatase 84 U/L (38-126); Anion Gap 9 mmol/L (4-12); Aspartate Amino Transferase 422 U/L (14-36); Bilirubin,Total 2.4 mg/dL (0.2-1.3); Blood Urea Nitrogen 7 mg/dL (7-17); Carbon Dioxide 25 mmol/L (22-30); Chloride 103 mmol/L (98-107); Estimated CRCL calculation 142 ml/min; Estimated Glomerular Filt Rate > 60; Glucose 102 mg/dL (65-110); Potassium 3.5 mmol/L (3.4-5.0); Sodium 137 mmol/L (137-145)
[2023-12-31] MEDS: HYDROcodone/acetaminophen (*CRX) 7.5-325 MG TABLET 1 TAB PO ×2 (08:22→23:00)
--- NOTE | 2023-12-31 09:56 | PM.PNGS ---
Progress Note: A&P Assessment and Plan (1) Acute calculous cholecystitis: Code(s): K80.00 - Calculus of gallbladder with acute cholecystitis without obstruction Status: Acute Assessment and Plan: Doing well postop day 1. IOC showed a distal common bile duct stone. GI planning ERCP today. (2) Transaminitis: Code(s): R74.01 - Elevation of levels of liver transaminase levels Status: Acute Plan I have discussed the patient's case and plan of care with Dr. Carpio. Subjective Subjective Date/Time Seen: 12/31/23 09:56 Post Op day: 1 (lap sis with IOC) Interval history: Patient schedule for ERCP today. She has complaints of a sore throat which she took medication for. No abdominal pain at this time but reports some tolerable incisional soreness earlier this morning. Exam Const: General: comfortable and no acute distress GI: Inspection: non-distended and incision (incisions dry and intact) GI Palp: Yes Soft to palpation, Yes Tenderness to palpation present (GI) (incisional) and No Guarding due to palpation present (GI) Auscultation: normal bowel sounds Objective Data Vital Signs Vital Signs: Vital Signs - 24 hr 12/30/23 10:00 12/30/23 10:15 12/30/23 10:30 Temperature Pulse Rate 77 71 76 Respiratory Rate 20 18 16 Blood Pressure 129/68 124/77 114/56 L Pulse Oximetry 93 99 95 Oxygen Delivery Room Air Room Air Room Air 12/30/23 10:35 12/30/23 10:50 12/30/23 11:20 Temperature 97.3 F L 97.2 F L 97.2 F L Pulse Rate 71 72 70 Respiratory Rate 16 16 16 Blood Pressure 120/62 121/62 113/58 L Pulse Oximetry 98 97 98 Oxygen Delivery 12/30/23 16:45 12/30/23 12:45 12/30/23 20:20 Temperature 97.7 F 96.8 F L 98.2 F Pulse Rate 86 67 87 Respiratory Rate 20 20 17 Blood Pressure 130/64 130/64 118/65 Pulse Oximetry 99 99 98 Oxygen Delivery 12/30/23 20:00 12/30/23 23:05 12/31/23 03:38 Temperature 97.9 F 97.6 F Pulse Rate 87 68 70 Respiratory Rate 17 16 16 Blood Pressure 109/67 123/69 Pulse Oximetry 98 96 99 Oxygen Delivery Room Air 12/31/23 08:20 Temperature 97.0 F L Pulse Rate 60 Respiratory Rate 18 Blood Pressure 121/68 Pulse Oximetry 94 Oxygen Delivery Intake/Output Intake/Output: Intake & Output 12/28/23 12/29/23 12/30/23 12/31/23 23:59 23:59 23:59 23:59 Intake Total 840 1610 1195 100 Output Total 700 700 0 Balance 840 910 495 100 Meds/Results Medications: Active Medications Generic Name Dose Route Start Last Admin Trade Name Freq PRN Reason Stop Dose Admin Hydrocodone Bitart/Acetaminophen 1 tab 12/30/23 10:35 12/30/23 12:16 Hydrocodone/Acetaminophen (*Crx) 5-325 Mg Tablet PO 1 tab Q4H PRN Administration Pain Rated 4-6 Hydrocodone Bitart/Acetaminophen 1 tab 12/30/23 10:35 12/31/23 08:22 Hydrocodone/Acetaminophen (*Crx) 7.5-325 Mg Tablet PO 1 tab Q4H PRN Administration Pain Rated 7-10 Diphenhydramine HCl 25 mg 12/30/23 10:35 Diphenhydramine Hcl Inj 50 Mg/Ml Vial IV PUSH Q6H PRN Itching Ceftriaxone Sodium 1 gm in 50 mls @ 100 mls/hr 12/29/23 16:00 12/30/23 17:50 Rocephin 1 Gm/Ns 50 Ml IVPB Infused Q24H MELVI Infusion Metronidazole 500 mg in 100 mls @ 100 mls/hr 12/29/23 00:00 12/31/23 06:39 Flagyl 500 Mg/Iso Soln 100 Ml IVPB Infused Q8HR MELVI Infusion Ibuprofen 800 mg in 200 mls @ 400 mls/hr 12/30/23 10:35 Caldolor 800 Mg/200 Ml IVPB Q6H PRN Breakthrough Pain Rated 1-3 or NPO Ibuprofen 600 mg 12/30/23 10:35 Ibuprofen 600 Mg Tablet PO Q6H PRN Pain Rated 1-3 Indomethacin 50 mg 12/31/23 11:30 Indomethacin 50 Mg Supp.Rect RECTAL 12/31/23 11:31 ONCE ONE Morphine Sulfate 2 mg 12/30/23 10:35 12/30/23 17:20 Morphine Sulfate (*Crx) 2 Mg/Ml Inj IV PUSH 2 mg Q2H PRN Administration Breakthrough Pain Rated 4-6 or NPO Morphine Sulfate 4 mg 12/30/23 10:35 Morphine Sulfate (*Crx) 4 Mg/Ml Inj IV PUSH Q2H PRN
[2023-12-31] MEDS: LACTATED RINGERS 1,000 ML 150 ML IV CONT (11:18)
--- NOTE | 2023-12-31 12:12 | WPDANESEPPF ---
Anes - Initial Pre Proc Eval Procedure: Operation Date: 12/30/23 08:30 Proposed Procedures p Laparoscopic Cholecystectomy with Intraoperative Cholangiogram - Tc Carpio DO Operation Date: 12/31/23 16:30 Proposed Procedures p Endoscopic Retro Cholangiopancreatogram - Delbert Santiago MD Date/Time: 12/31/23 12:12 Surgeon: Tc Carpio DO Pre Op Diagnosis: cholecystitis Patient Data Age: 23 Gender: F Height: 1.55 m Weight: 111.6 kg Last Vital Signs Temp 35.6 C L 12/31/23 11:15 Pulse 59 L 12/31/23 11:15 Resp 20 12/31/23 11:15 BP 119/50 L 12/31/23 11:15 Pulse Ox 98 12/31/23 11:15 O2 Del Method Room Air 12/31/23 11:15 O2 Flow Rate 8 12/30/23 09:45 Allergies Allergy/AdvReac Type Severity Reaction Status Date / Time No Known Allergies Allergy Verified 12/31/23 11:13 Home Medications Medication Instructions Recorded Confirmed Type No Home Medications 12/28/23 12/28/23 History Laboratory Tests 12/31/23 06:03 WBC 8.4 K/mm3 (4.5-10.0) RBC 4.25 M/mm3 (4.2-5.4) Hgb 12.5 g/dL (12.0-15.0) Hct 37.2 % (37.0-47.0) MCV 87.5 fl (80-100) MCH 29.4 pg (26-34) MCHC 33.6 g/dl (32-36) RDW 12.2 % (11.5-14.5) Plt Count 282 k/mm3 (150-375) MPV 9.3 fl (7.4-10.4) Sodium 137 mmol/L (137-145) Potassium 3.5 mmol/L (3.4-5.0) Chloride 103 mmol/L (98-107) Carbon Dioxide 25 mmol/L (22-30) Anion Gap 9 mmol/L (4-12) BUN 7 mg/dL (7-17) Creatinine 0.60 L mg/dL (0.7-1.0) Estim Creat Clear Calc 142 ml/min Estimated GFR > 60 (59 - ) Glucose 102 mg/dL (65-110) Calcium 9.0 mg/dL (8.4-10.2) Total Bilirubin 2.4 H mg/dL (0.2-1.3) AST 422 H U/L (14-36) ALT 401 H U/L (6-35) Alkaline Phosphatase 84 U/L (38-126) Total Protein 8.0 g/dL (6.3-8.2) Albumin 4.4 g/dL (3.5-5.1) Patient hx anesthesia problems: none Family hx anesthesia problems: none Results Review: All pre-operative results and documents have been reviewed as part of the pre-operative evaluation. [facility] Past Medical History Medical History Choledocholithiasis Epigastric pain Motion sickness Nausea and vomiting in adult Surgical History Surgical History (Updated 12/31/23 @ 12:12 by Castro Garcia MD) History of ventricular septal defect repair Hx laparoscopic cholecystectomy Family History Family History Mother Thyroid cancer Social History Social History Smoking status: Never smoker Alcohol intake: current Drinks per week: 1 Substance use: never Do You Feel Safe in your Home?: Yes Lack of Transportation: No Lack of Food: Never True Current Housing: I Have Housing Concerned About Future Housing: No Difficulty Paying Gas/Electric Bills: No Difficulty Paying for Meds: No Currently Unemployed: No Education: Associate Degree Difficulty w/ Childcare or Family Care: No Spiritual care concerns: No Anes - Eval Final PreProcedure Day of Procedure 12/31/23 12:12 Patient weight: morbidly obese Heart: regular rate and rhythm Lungs: clear to auscultation Airway: Mallampati scale class 1 Neurological: alert and oriented Last oral intake: >/= 8 hours ASA classification: III Emergent: no Anesthetic plan: proceed Anesthesia type and monitoring: general ETT and standard monitoring Results Review: All pre-operative results and documents have been reviewed as part of the pre-operative evaluation. Informed Consent: The patient's anesthetic plan and its attendant risks and benefits were discussed with the patient/family/POA. Questions were solicited and answers provided to the satisfaction of the patient/family/POA.
[2023-12-31] MEDS: INDOMETHACIN 50 MG SUPP.RECT RECTAL (13:30)
[2023-12-31] MEDS: MORPHINE SULFATE (*CRX) 2 MG/ML INJ IV PUSH ×3 (14:54→21:46)
[2023-12-31] MEDS: ONDANSETRON INJ 4 MG/2 ML VIAL IV PUSH (21:47)
[2023-12-31] MEDS: SODIUM CHLORIDE 0.9% IV 250 ML 10 ML (21:47)
[2024-01-01 00:45] VITALS: BP 130/59; PULSE 83; RESP 20; TEMP 36.3; O2SAT 97
[2024-01-01] MEDS: HYDROcodone/acetaminophen (*CRX) 7.5-325 MG TABLET 1 TAB PO ×3 (03:05→13:14)
[2024-01-01] MEDS: MORPHINE SULFATE (*CRX) 4 MG/ML INJ IV PUSH (04:10)
[2024-01-01] MEDS: metroNIDAZOLE 500 MG/ISO 100ML 500 MG/100 ML BAG 100 MG IVPB ×2 (05:03→13:09)
[2024-01-01 06:27] VITALS: BP 130/59; PULSE 72; RESP 18; TEMP 36.4; O2SAT 98
[2024-01-01] MEDS: PANTOPRAZOLE 40 MG TABLET PO (09:31)
--- NOTE | 2024-01-01 10:44 | WPDANESPN ---
Anes - Prog Note Post-Op Date/Time: 01/01/24 10:44 Cardiovascular status: normal Respiratory status: normal Airway patency: baseline Mental status: baseline Post-Op hydration status: normal Vital Signs: Last Vital Signs Temp 36.4 C 01/01/24 06:27 Pulse 72 01/01/24 06:27 Resp 18 01/01/24 06:27 BP 130/59 L 01/01/24 06:27 Pulse Ox 98 01/01/24 06:27 O2 Del Method Room Air 12/31/23 20:00 O2 Flow Rate 10 12/31/23 14:09 Pain Score (VAS): 310 I/O: Intake & Output 12/31/23 01/01/24 01/01/24 23:59 07:59 15:59 Intake Total 1350 972 Output Total 1450 550 Balance -100 422 Laboratory Tests 12/31/23 06:03 12/31/23 06:03 Post-procedural complaints: none Patient Feedback: Patient satisfied with anesthetic care.
--- NOTE | 2024-01-01 11:56 | PM.DS ---
DS: Admitting Diagnosis Discharge Date 01/01/2024 Admitting Diagnosis acute calculous cholecystitis, transaminitis DS: Discharge Diagnosis Discharge Diagnosis (1) Acute calculous cholecystitis: Code(s): K80.00 - Calculus of gallbladder with acute cholecystitis without obstruction Status: Acute (2) Transaminitis: Code(s): R74.01 - Elevation of levels of liver transaminase levels Status: Acute (3) Choledocholithiasis: Code(s): K80.50 - Calculus of bile duct without cholangitis or cholecystitis without obstruction Status: Acute (4) BMI 45.0-49.9, adult: Code(s): Z68.42 - Body mass index [BMI] 45.0-49.9, adult Status: Acute DS: Summary Hospital Course Reason for hospitalization: acute cholecystitis Hospital Course: this is a 23-year-old woman who presented to the emergency department on 12/28/2023 with epigastric abdominal pain that started acutely the night before. She had tried going to the gym that morning but the pain was worsening and she was also experiencing nausea and vomiting. In the emergency department she was noted to have a slightly elevated white blood count and liver enzymes were also elevated. Ultrasound showed evidence of cholelithiasis and hepatic steatosis. She was continuing to have constant abdominal pain and was therefore admitted for further treatment. Her liver enzymes were slightly elevated further on 12/29 but bilirubin remained normal. She underwent laparoscopic cholecystectomy with intraoperative cholangiogram on 12/29. This showed evidence of a 5 mm distal common bile duct filling defect consistent with choledocholithiasis. Dr. Santiago was then consulted for ERCP. She underwent ERCP on 12/31/2023 this was successful for common bile duct stone extraction. Her diet was then advanced as tolerated postoperatively and postprocedure. She did have some epigastric pain overnight on 12/31/2023, but this was coming and going and it was controlled with pain medications. On 12/31, her pain was improving and she was tolerating her diet. She was discharged on 01/01/2024. Status at Discharge Functional status at discharge: independent ambulation Overall status at discharge: patient is progressing back to baseline Time Spent with Patient Time attestation: Total time spent providing and/or coordinating discharge services: Time spent: Less than 30 minutes Exam Const: General: comfortable and no acute distress Orientation/consciousness: patient oriented x3 Resp: Effort & Inspection: normal respiratory effort Auscultation: clear to auscultation bilaterally Cardio: Rate: regular rate Rhythm: regular rhythm GI: Inspection: non-distended and incision ( Intact with glue) GI Palp: Yes Soft to palpation, Yes Tenderness to palpation present (GI) ( mild epigastric), No Guarding due to palpation present (GI) and No Rebound tenderness present Auscultation: normal bowel sounds DS: Data Data Completed and Pending Completed studies during hospitalization: Pending at discharge 12/30/23 08:58 Surgical [PTH] Routine Imaging Radiologist's impression: ITS Impressions Upper Quadrant Ultrasound 12/28/23 13:34 IMPRESSION: Cholelithiasis Hepatic steatosis Cholangiogram,Operative 12/30/23 09:31 IMPRESSION: 1. 5 mm stone in the distal common bile duct with mild intrahepatic and extrahepatic biliary duct dilatation. Discharge Plan Discharge Attending physician on discharge: Tc Carpio Consulting providers: Delbert Santiago Discharging Clinician: Tc Carpio Patient Disposition: Home, Self-Care Activity: other - see discharge instructions Diet: low fat Wound Care Instructions: other - see discharge instructions Discharge Instructions: Remove the Scopolamine patch that was placed behind your ear in 72 hours or less. Patch placed 12/30/23 @08:10am. Wash your hands after touching. DISCHARGE I
[2024-01-01 14:00] VITALS: BP 122/56; PULSE 73; RESP 14; TEMP 36.3; O2SAT 99
== END 2024-01-01 16:00 | disposition home or self-care (01) | DRG 263 ==
LOC: ANHED 13:05 → ANH3MEDSUR 15:57
PROVIDERS: Internal Medicine Gastroenterology; Admitting Provider Surgery; Emergency Provider Emergency Medicine; PCP Physician Assistant Medical; Visit Provider Surgery
PROC: 0FT44ZZ Resection of Gallbladder, Percutaneous Endoscopic Approach (ICD-10-PCS; CPT 47562; principal; 2023-12-30 14:30)
PROC: 0FC98ZZ Extirpation of Matter from Common Bile Duct, Via Natural or Artificial Opening Endoscopic (ICD-10-PCS; CPT 43260; principal; 2023-12-31 16:30)
DX: K80.60 Calculus of gallbladder and bile duct with cholecystitis, unspecified, without obstruction (principal); K29.70 Gastritis, unspecified, without bleeding; K29.80 Duodenitis without bleeding; K80.50 Calculus of bile duct without cholangitis or cholecystitis without obstruction; E66.01 Morbid (severe) obesity due to excess calories; Z68.42 Body mass index [BMI] 45.0-49.9, adult
CPT/HCPCS: 36415; 74300; 74329; 76705; 80053; 81025; 83690; 85025; 85027; 88304; 96365; 96367; 96374; 96375; 96376; 99285; A9270; G0378; G0379; J0330; J0696; J1100; J1170; J1200; J1836; J2250; J2270; J2405; J2704; J3010; J7030; J7050; J7120; Q9966

== ENCOUNTER 2024-06-17 12:20 | Outpatient (CLI) | payer OTHER, SELFPAY ==
[2024-06-18 00:38] LABS: Hemoglobin A1C 5.2 % (<5.7)
[2024-06-18 09:14] LABS: DHEA-Sulfate 222 mcg/dL (14-349); FSH 5.1 mIU/mL; Progesterone <0.5 ng/mL
[2024-06-18 15:38] LABS: Insulin Level Total 17.2 uIU/mL
[2024-06-23 09:18] LABS: Testosterone Free 7.9 pg/mL (0.1-6.4); Testosterone Total 68 ng/dL (2-45)
== END 2024-06-17 12:21 | disposition home or self-care (01) ==
LOC: ANHLAB 12:23
PROVIDERS: Visit Provider Nurse Practitioner Obstetrics & Gynecology
DX: N93.9 Abnormal uterine and vaginal bleeding, unspecified (principal)
CPT/HCPCS: 36415; 82306; 82627; 83001; 83002; 83036; 83525; 84144; 84402; 84403; 84443

== ENCOUNTER 2025-02-09 10:48 | Emergency (ER) | payer OTHER, SELFPAY ==
--- NOTE | ~2025-02-09 | US_ITS ---
EXAMINATION: US OB <= 14 weeks fetus DATE: 02/09/2025 13:06 CDT INDICATION: Vaginal bleeding since 02/07/2025 COMPARISON: None TECHNIQUE: Real-time transabdominal obstetric ultrasound. FINDINGS: 2 para 1 Quantitative serum beta hCG measures 243 The uterus measures 6.8 x 3.7 x 5.3 cm. The avascular endometrial complex measures 6.7 mm, not thickened. No gestational sac is identified within the uterus. Within the lower uterine segment is a 2.5 mm well-circumscribed anechoic focus, likely a [facility]. The right ovary is unremarkable in echogenicity and size and measures 2.7 x 3.3 x 2.9 cm. The left ovary is unremarkable in echogenicity and size and measures 3.2 x 4.8 x 2.3 cm. Dopplerable flow is detected bilaterally. No free fluid is identified within the posterior cul-de-sac. IMPRESSION: No intrauterine gestation is identified. Given that the serum beta hCG is only 243, would recommend interval follow-up with the expectation to visualize a gestational sac when the quantitative serum beta hCG ranges between 1500 and 2000. Reviewed, dictated and finalized at location A. IMPRESSION: No intrauterine gestation is identified. Given that the serum beta hCG is only 243, would recommend interval follow-up w ith the expectation to visualize a gestational sac when the quantitative serum beta hCG ranges between 1500 and 2000.
--- OUTSIDE RECORDS SUMMARY | 2025-02-09 10:55 | XMS_ITS | Referral Summary ---
Author Organization [facility] Address [address] [place] [address] Care Team Providers Care Client Professional Name Role Phone Fatimah Morales Primary Care Provider [phone] Allergies No known active allergies Medications calcium acetate,phospha t bind, (PHOSLO) 667 mg tablet Take by mouth daily Active 25/iron fum/folic/dha (-1 ORAL) Take 1 tablet by mouth daily Active acetaminophen (TYLENOL) 325 mg tablet Take 2 tablets (650 mg total) by mouth every 4 (four) hours as needed for pain 30 tablet 1 12/04/2021 Active docusate sodium (COLACE) 100 mg capsuleIndicati ons:constipatio n,Stool Softener Take 1 capsule (100 mg total) by mouth 2 (two) times a day 30 capsule 1 12/04/2021 Active ibuprofen (ADVIL,MOTRIN) 600 mg tabletIndicatio ns:Pain Take 1 tablet (600 mg total) by mouth every 6 (six) hours as needed for pain 30 tablet 1 12/04/2021 Active Active Problems Problem Noted Date Diagnosed Date 40 weeks gestation of 12/02/2021 Immunizations Immunization Administration Dates Next Due MMR 12/04/2021(Deferred: Contraindic ation) Tdap 12/04/2021(Deferred: Contraindic ation) Social History Tobacco Use Types Packs/Day Years Used Date Smoking Tobacco: Never AUDIT-C Answer Date Recorded Q1: How often do you have a drink containing alcohol? Never 12/02/2021 Q2: How many drinks containi ng alcohol do you have on a typical day when you are drinking? Patient does not drink Q3: How often do you have si x or more drinks on one occasion? Never 12/02/2021 [place] Depression Scale Answer Date Recorded [place] Depression Scale Total 3 12/03/2021 The thought of harming myself has occurred to me . Never 12/03/2021 Personal Safety Answer Date Recorded Getting School Help Needed Not on file 07/17 Comments No Sex and Gender Information Value Date Recorded Sex Assigned at Not on file Legal Sex Female 9:42 AM CDT Gender Identity Not on file Sexual Orientation Not on file Last Filed Vital Signs Vital Sign Reading Time Taken Comments Blood Pressure 146/93 01/07/2022 11:45 AM CDT Pulse 63 01/07/2022 11:45 AM CDT Temperature 36.5 C (97.7 F) 01/07/2022 8:54 AM CDT Respiratory Rate 26 01/07/2022 11:45 AM CDT Oxygen Saturation 100% 01/07/2022 11:45 AM CDT Inhaled Oxygen Concentration - - Weight 53.3 kg (117 lb 8.1 oz) 01/07/2022 8:54 A M CDT Height 154.9 cm (5' 1) 01/07/2022 8:54 AM CDT Body Mass Index 22.2 01/07/2022 8:54 AM CDT Plan of Treatment Not on file Insurance [facility] [place] Advance Directives For more information, please contact: [phone] * Full Code (Latest Code Status on File) Date Activated Date Inactivated Comments 12/02/2021 8:18 PM 12/04/2021 7:25 PM * Full Code Date Activated Date Inactivated Comments 12/02/2021 2:24 AM 12/02/2021 8:18 PM Full CPR in case of cardiopulmonary arrest Care Teams Client Professional Relationship Specialty Start Date End Date Fatimah Morales PA [address] [place] [address] PCP - General Physician [place] D[employer] Operator 11/09/21
--- OUTSIDE RECORDS SUMMARY | 2025-02-09 10:55 | XMS_ITS | Clinical Summary ---
Author Organization [facility] Address [address] [place] [address] Care Team Providers Care Fund Accountant Name Role Phone Fatimah Morales Primary Care Provider [phone] Allergies No known active allergies Medications calcium [...] 12/04/2021(Deferred: Contraindic ation) Tdap 12/04/2021(Deferred: Contraindic ation) Surgical History Surgery Date Site/Laterality Comments ASD REPAIR Age 9- no complications Family History Medical History Relation Name Comments No Known Problems Brother No Known Problems Father No Known Problems Maternal Grandmother Thyroid cancer Mother No Known Problems Sister Relation Name Status Comments Brother Alive Father Maternal Grandfather Maternal Grandmother Alive Mother Sister Alive Social History Tobacco Use Types Packs/Day Years [...] more drinks on one occasion? Never 12/02/2021 [place] Depression Scale Answer Date Recorded [place] Depression Scale Total 3 12/03/2021 The thought of harming myself has occurred to me . Never 12/03/2021 Personal Safety Answer Date Recorded Getting School Help Needed Not on file 07/17 Comments No Sex and Gender Information Value Date Recorded Sex Assigned at Not on file Legal Sex Female 9:42 AM CDT Gender Identity Not on file Sexual Orientation Not on file Obstetrics History Para Term AB IAB SAB Ectopic Multiple Livin g Live Births 1 1 1 0 1 1 Date Outcome GA Total Labor Labor/2nd/3rd Weight Sex Type Anes PTL Violet A1 A5 Name Clin 022 Term 40w 2d 12h 34m 11h 50m/0h 40m/0h 04m 3.45 kg (7 lb 9.7 oz) F Vag-S pont Epidur al N Livin g 8 9 Stacey DOMINGUEZ Katy, MD Complications:None Delivery Location:[facility] ([facility]) Last Filed Vital Signs Vital Sign Reading [...] 01/07/2022 8:54 AM CDT Plan of Treatment Health Maintenance Due Date Last Done Comments Cervical Cancer Screening 1999 Hepatitis C Screening 1999 Hepatitis B Screening 2017 Regular Well Visit/Exam 18-64 2017 Depression Screening 12/03/2022 12/03/2021 Covid-19 Vaccine (3 - 2023-2 5 season) 2024 11/04/2020, 10/14/2020 Influenza Vaccine (#1) 2025 , 04/15/2017, 04/07/2016 DTaP/Tdap/Td Vaccine (3 - Td or Tdap) 09/22/2031 09/21/2021, 02/07/2015 HPV Vaccines Completed 04/07/2016, 02/07/2015, 01/26/2014 Varicella Vaccines Completed 04/07/2016, 02/07/2015, 01/26/2014 Pneumococcal vaccine <65 Aged Out No longer eligible based on patient's age to complete this topic Insurance [facility] Advance Directives For more information, please contact: [phone] * Full Code (Latest Code Status on File) Date Activated Date Inactivated Comments 12/02/2021 8:18 PM 12/04/2021 7:25 PM * Full Code Date Activated Date Inactivated Comments 12/02/2021 2:24 AM 12/02/2021 8:18 PM Full CPR in case of cardiopulmonary arrest Care Teams Fund Accountant Relationship Specialty Start [place] [address] [place] [id number] PCP - General Physician Laboratory Operations Coordinator 11/09/21
--- OUTSIDE RECORDS SUMMARY | 2025-02-09 10:56 | XMS_ITS | Clinical Summary ---
Author Organization [facility] Address [address] [facility] [place] [address] Care Team Providers Care Practice Nurse Name Role Phone Sylvie Alvarenga MD Primary Care Provider [phone] Source Comments [facility],non-owned Affiliates and Associated Physician Practices is amultiple site organization consisting of ambulatory clinics and hospital sitesin [place], [place], [place] and [place]. This disclosure is being madepursuant to the Care Everywhere program and may not contain all information available regarding this patient. Last updated 18.[facility] Allergies No known active allergies Medications * Be aware that medications may not be up to date on this document. Alwaysverify current medications with the patient. 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 <30 Neg Hx Social History Tobacco Use Types Packs/Day Years Used Date Smoking Tobacco: Never Smokeless Tobacco: Never Alcohol Use Standard Drinks/Week Comments Not Currently 0 (1 standard drink = 0.6 oz pur e alcohol) Comments No Sex and Gender Information Value Date Recorded Sex Assigned at Not on file Legal Sex Female 8:42 AM SLATE CUTTER OPERATOR Gender Identity Not on file Sexual Orientation Not on file Last Filed Vital Signs Vital Sign Reading Time Taken Comments Blood Pressure 127/67 10/12/2021 2:36 PM CDT Pulse 76 10/12/2021 2:36 PM CDT Temperature 37.1 C (98.7 F) 07/13/2019 6:36 PM SLATE CUTTER OPERATOR Respiratory Rate 18 10/12/2021 2:36 PM CDT Oxygen Saturation 99% 07/13/2019 6:36 PM SLATE CUTTER OPERATOR Inhaled Oxygen Concentration 50% 11/11/2009 3 :15 PM CDT Weight 98 kg (216 lb) 10/12/2021 2:36 PM CDT Height 154.9 cm (5' 1) 10/12/2021 2:36 PM CDT Body Mass Index 40.81 10/12/2021 2:36 PM CDT Plan of Treatment Health Maintenance Due Date Last Done Comments HIV SCREENING 2014 HPV VACCINE (1 - 3-dose series) 2014 CHLAMYDIA/GONORRHEA SCREENING 2015 HEPATITIS C SCREENING 09/01/2017 DTAP/TDAP/TD VACCINES (1 - Tdap) 2018 HEPATITIS B VACCINE (1 of 3 - 19+ 3-dose series) 2018 PAP SMEAR 2020 COVID-19 VACCINE (3 - 2023-2 5 season) 2024 11/04/2020, 10/14/2020 DEPRESSION SCREENING 07/15/2024 INFLUENZA VACCINE (#1) 2025 7, 04/07/2016 ZOSTER VACCINE (1 of 2) 2049 HIB VACCINE Aged Out No longer eligi ble based on patient's age to complete this topic MENINGOCOCCAL (Group B) VACCINE SHARED DECISION-MAKING Aged Out No longer eligible based on patient's age to complete this topic MENINGOCOCCAL GROUPS A/C/Y/W VACCINE Aged Out No longer eligible b ased on patient's age to complete this topic PNEUMOCOCCAL VACCINE Aged Out No long er eligible based on patient's age to complete this topic Insurance [facility] * Guarantor: SILVIO PATINO Account Type Relation to Patient Date of Phone Billing Address Personal/Family [address] [place], [place] [id number] [place] [address] SELF PAY NO INSURANCE Member Subscriber Plan / Payer (Ef fective for All Dates) Name:Silvio Patino Member ID:Not on file Relation to Subscriber:Not on file Name:SILVIO PATINO Subscriber ID:Not on file Address: [address] [place] [address] Payer ID:Not on file Group ID:Not on file Type:Self Pay Address: [place], [place] * Guarantor: SILVIO PATINO Account Type Relation to Patient Date of Phone Billing Address Personal/Family [address] [place] [address] [facility] SELF PAY NO INSURANCE Member Subscriber Plan / Payer (Ef fective for All Dates) Name:Silvio Patino Member ID:Not on file Relation to Subscriber:Not on file Name:SILVIO PATINO Subscriber ID:Not on file Address: [address] [place] [address] Payer ID:Not on file Group ID:Not on file Type:Self Pay Address: [place], [place] * Guarantor: SILVIO PATINO Account Type Relation to Patient Date of Phone Billing Address Personal/Family [address] [place] [id number] [facility] SELF PAY NO INSURANCE Member Subscriber Plan / Payer (Ef fective for All Dates) Name:Silvio Patino Member ID:Not on file Relation to Subscriber:Not on file Name:SILVIO PATINO Subscriber ID:Not on file Address: [address] [place] [id number] Payer ID:Not on file Group ID:Not on file Type:Self Pay Address: [place], [place] Care Teams Practice Nurse Relationship Specialty Start Date End Date Sylvie Alvarenga MD [address] [facility] [address] [place] [address] PCP - General 07/15/19
[2025-02-09 11:04] VITALS: BP 146/88; PULSE 85; RESP 18; TEMP 36.6; O2SAT 99
--- NOTE | 2025-02-09 11:23 | ED_ITS ---
HPI - Female Genitourinary General Chief complaint: Vaginal Bleeding Stated complaint: vaginal bleeding, +preg test last week Time Seen by Provider: 02/09/25 11:05 History of Present Illness HPI Narrative: 24-year-old female who is G2 P wound, LMP 12/28, presents emergency department for vaginal bleeding in . Patient states she had a at home positive test on 01/31. She then developed vaginal bleeding the following day that lasted approximately 3 days, states it was a normal period flow and resulted in her needing to change her tampon every 4-6 hours. She repeated a test at home on 02/03 which again was positive. She has had intermittent light vaginal bleeding and spotting since. She states over the past day she developed suprapubic abdominal cramping and nausea. She denies dysuria, hematuria, fever, vomiting. Is reporting some urinary frequency and urgency. Denies passage of clots. States she is currently wearing a panty liner but states the bleeding is very light and is only present when she wipes after going to the bathroom. Patient verbalizes this is an undesired . Related Data Allergies Allergy/AdvReac Type Severity Reaction Status Date / Time No Known Allergies Allergy Verified 02/09/25 11:15 Review of Systems 2 Review of Systems: All systems reviewed & are unremarkable except as noted in HPI and below PMFSH Past Medical History Medical History Depression Anxiety Epigastric pain Nausea and vomiting in adult Choledocholithiasis Motion sickness Surgical History Surgical History Hx laparoscopic cholecystectomy Dr. Tc Carpio 12/30/23 History of ventricular septal defect repair Family History Family History Mother Thyroid cancer Social History Social History Smoking status: Never smoker Alcohol intake: current Drinks per week: 1 Substance use: never Do You Feel Safe in your Home?: Yes Lack of Transportation: No Lack of Food: Never True Current Housing: I Have Housing Concerned About Future Housing: No Difficulty Paying Gas/Electric Bills: No Difficulty Paying for Meds: No Currently Unemployed: No Education: Associate Degree Difficulty w/ Childcare or Family Care: No Spiritual care concerns: No Exam 2 Narrative: GENERAL: Well-appearing, well-nourished, and in no acute distress. HEAD: Normocephalic, atraumatic. EYES: EOMI. ENT: Nares clear, no rhinorrhea or epistaxis. Mucous membranes moist. NECK: Supple. CHEST: Clear to auscultation. No respiratory distress. HEART: Regular rate and rhythm. No murmur heard. Normal peripheral pulses. ABDOMEN: Normoactive bowel sounds. Abdomen soft with minimal tenderness to the suprapubic region. No rebound, guarding or rigidity. No CVA tenderness. : Pt deferred EXTREMITIES: Normal range of motion. No edema. SKIN: Warm, dry, no rash. NEURO: No focal deficits. Alert and oriented x3 Course Vital Signs Vital signs: Vital Signs Temperature 97.8 F 02/09/25 11:04 Pulse Rate 85 02/09/25 11:04 Respiratory Rate 18 02/09/25 11:04 Blood Pressure 146/88 H 02/09/25 11:04 Pulse Oximetry 99 02/09/25 11:04 Oxygen Delivery Room Air 02/09/25 11:04 Temperature 97.8 F 02/09/25 11:04 Pulse Rate 77 02/09/25 12:52 Respiratory Rate 16 02/09/25 12:52 Blood Pressure 138/79 02/09/25 12:52 Pulse Oximetry 99 02/09/25 12:52 Oxygen Delivery Room Air 02/09/25 11:04 MDM - Female Genitourinary MDM Narrative Medical decision making narrative: 24-year-old female who is , LMP 6/16 presents emergency department for 2 positive home tests within the past week and intermittent vaginal bleeding/spotting. Triage vitals are stable. Patient is afebrile and nontoxic appearing. Exam is notable for the above. Patient deferred pelvic exam. Lab work without leukocytosis or anemia. Chemistries with chronic elevation in AST and ALT, 47 and 62 respectively. Urinalysis indicative of urinary tract infection with 51-100 white blood cells, 6-10 red blood cells, 2+ leuk esterase, 2+ bacteria. Patient is endorsing some urinary frequency and urgency, will start Keflex for presumed UTI pending culture results. Beta hCG is 242.56. Rh is positive, RhoGAM not required. Pelvic ultasound IMPRESSION: No intrauterine gestation is identified. Given that the serum beta hCG is only 243, would recommend interval follow-up with the expectation to visualize a gestational sac when the quantitative serum beta hCG ranges between 1500 and 2000. Patient updated on results. She is resting comfortably in exam bed. Per patient's LMP, would expect her to be approximately 7 weeks . Discussed her hCG is very low given this timeframe and there is a high likelihood that she is miscarrying. Will repeat beta-hCG in 48 hours and have her follow-up closely with OBGYN. Will provide Tylenol and reglan for symptomatic control. Discussed strict ED return precautions. She is agreeable with the plan verbalized understanding. Discharged in stable condition. Lab Data 02/09/25 11:37 02/09/25 11:37 Labs: Lab Results 02/09/25 Range/Units 11:37 WBC 8.8 (4.5-10.0) K/mm3 RBC 4.54 (4.2-5.4) M/mm3 Hgb 13.2 (12.0-15.0) g/dL Hct 39.0 (37.0-47.0) % MCV 85.9 (80-100) fl MCH 29.1 (26-34) pg MCHC 33.8 (32-36) g/dl RDW 12.5 (11.5-14.5) % Plt Count 311 (150-375) k/mm3 MPV 8.7 (7.4-10.4) fl Immature Gran % (Auto) 0.7 H (0-0.5) % Neut % (Auto) 61.4 (45.5-73.1) % Lymph % (Auto) 32.2 (18.3-44.2) % [place] % (Auto) 4.2 (2.6-8.5) % Eos % (Auto) 1.0 (0-4.4) % Baso % (Auto) 0.5 (0.2-1.2) % Lymph # (Auto) 2.84 (0.9-3.2) K/mm3 [place] # (Auto) 0.4 (0.1-0.6) K/mm3 Eos # (Auto) 0.1 (0-0.3) K/mm3 Baso # (Auto) 0.0 (0.0-0.1) K/mm3 Abs Immat Gran (auto) 0.06 H (0.00-0.031) K/mm3 Absolute Neuts (auto) 5.4 (1.3-6.7) K/mm3 Absolute Nucleated RBC 0.000 (0.0-0.012) K/mm3 Nucleated RBC % 0.0 (0.0-0.2) % PT 14.7 (11.1-14.7) Seconds INR 1.1 APTT 29.9 (22.3-36.8) Seconds Sodium 134 L (137-145) mmol/L Potassium 3.8 (3.4-5.0) mmol/L Chloride 104 (98-107) mmol/L Carbon Dioxide 21 L (22-30) mmol/L Anion Gap 9 (4-12) mmol/L BUN 11 (7-17) mg/dL Creatinine 0.56 L (0.7-1.0) mg/dL Estim Creat Clear Calc 136 ml/min Estimated GFR > 60 (59 - ) Glucose 106 (65-110) mg/dL Calcium 9.5 (8.4-10.2) mg/dL Total Bilirubin 0.5 (0.2-1.3) mg/dL AST 47 H (14-36) U/L ALT 62 H (6-35) U/L Alkaline Phosphatase 69 (38-126) U/L Total Protein 8.8 H (6.3-8.2) g/dL Albumin 4.7 (3.5-5.1) g/dL Beta HCG, Quant 242.56 mIU/ML Urine Color Yellow (Yellow) Urine Appearance Cloudy H (Clear) Urine pH 6.0 (5.0-9.0) Ur Specific [place]cano 1.027 (1.001-1.035) Urine Protein 1+ H (Negative) mg/dL Urine Glucose (UA) Negative (Negative) mg/dL Urine Ketones Trace H (Negative) mg/dL Ur Blood (Man) 3+ H (Negative) Urine Nitrate Negative (Negative) Urine Bilirubin Negative (Negative) Urine Urobilinogen 0.2 (<2.0) mg/dL Leukocyte Esterase Rfl 2+ H (Negative) REAGAN/UL Urine RBC 6-10 H (0-2) /hpf Urine WBC 51-100 H (0-3) /hpf Ur Squamous Epith Cells Occasional (Few) /hpf Urine Bacteria 2+ H /hpf Urine Casts 0-2 POC Urine HCG, Qual Positive (Negative) Blood Type O Positive Antibody Screen Negative Screen Not Reportable Baby's Blood Type Not Reportable Baby's LANA Not Reportable Doses of RhIg Required 0 Discharge Plan Discharge Clinical Impression: , threatened UTI (urinary tract infection) Qualifiers: Urinary tract infection type: acute cystitis Hematuria presence: with hematuria Qualified Code(s): N30.01 - Acute cystitis with hematuria Patient Disposition: Home Condition: Stable Instructions: Antibiotic Form, Threatened Miscarriage (ED), Urinary Tract Infection in Women (DC) Additional Instructions: Your beta hCG hormone level today is 242.56 which is lower than we would expect at this stage of your . This may be due to you actively miscarrying. Please have this level checked in 48 hours at [facility] to see if it is changing. Please follow-up closely with her OBGYN. Take the antibiotics as directed. Return to the emergency department if you develop worsening or changing abdominal pain, loss of consciousness, fever, you are unable to tolerate food or fluids, or other concerning symptoms. Patient Language: Spanish Prescriptions: New cephalexin 500 mg capsule 500 mg PO Q8H 7 Days Qty: 21 0RF metoclopramide HCl 10 mg tablet 10 mg PO Q6H PRN (Reason: nausea and vomiting) Qty: 14 0RF acetaminophen 500 mg capsule 500 mg PO Q6H PRN (Reason: pain) Qty: 14 0RF No Action metronidazole 500 mg tablet 500 mg PO Q12H Qty: 14 0RF Other Ambulatory Orders: Beta HCG Quantitative (Routine) Timeframe: 2 Days Location: Determined by Patient Ordered By: Marlyn Medina Follow-up/Referrals: PHYSICIAN,CHANGE NUMBER OPERATOR [Primary Care Provider] - Hebert Lewis MD [Physician] -
[2025-02-09 11:40] LABS: BEDSIDEPREGUCG Positive (Negative)
--- OUTSIDE RECORDS SUMMARY | 2025-02-09 11:40 | XMS_ITS | Clinical Summary ---
Author Organization [facility] Address [address] [facility] [place] [address] Care Team Providers Care Industrial Relations Analyst Name Role Phone Sylvie Alvarenga MD Primary Care Provider [phone] Source Comments [facility],non-owned Affiliates and Associated Physician Practices is amultiple site organization consisting of ambulatory clinics and hospital sitesin [place], [place], [place] and [place]. This disclosure is being madepursuant to the Care Everywhere program and may not contain all information available regarding this patient. 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 Gender Identity Not on file Sexual Orientation Not on file Last Filed Vital Signs Vital Sign Reading Time Taken Comments Blood Pressure 127/67 10/12/2021 2:36 PM CDT Pulse 76 10/12/2021 2:36 PM CDT Temperature 37.1 C (98.7 F) 07/13/2019 6:36 PM FUEL CELL BATTERY TECHNICIAN Respiratory Rate 18 10/12/2021 2:36 PM CDT Oxygen Saturation 99% 07/13/2019 6:36 PM FUEL CELL BATTERY TECHNICIAN Inhaled Oxygen Concentration 50% 11/11/2009 3 :15 [...] patient's age to complete this topic Insurance [facility] * Guarantor: SILVIO PATINO Account Type Relation to Patient Date of Phone Billing Address Personal/Family [address] [place], [place] [phone] [place] [address] SELF PAY NO INSURANCE Member Subscriber Plan / Payer (Ef fective for All Dates) Name:Silvio Patino Member ID:Not on file Relation to Subscriber:Not on file Name:SILVIO PATINO Subscriber ID:Not on file Address: [address] [place] [address] Payer ID:Not on file Group ID:Not on file Type:Self Pay Address: [place], [place] * Guarantor: SILVIO PATINO Account Type Relation to Patient Date of Phone Billing Address Personal/Family [address] [place] [address] [facility] SELF PAY NO INSURANCE Member Subscriber Plan / Payer (Ef fective for All Dates) Name:Silvio Patino Member ID:Not on file Relation to Subscriber:Not on file Name:SILVIO PATINO Subscriber ID:Not on file Address: [address] [place] [address] Payer ID:Not on file Group ID:Not on file Type:Self Pay Address: [place], [place] * Guarantor: SILVIO PATINO Account Type Relation to Patient Date of Phone Billing Address Personal/Family [address] [place] [id number] [facility] SELF PAY NO INSURANCE Member Subscriber Plan / Payer (Ef fective for All Dates) Name:Silvio Patino Member ID:Not on file Relation to Subscriber:Not on file Name:SILVIO PATINO Subscriber ID:Not on file Address: [address] [place] [id number] Payer ID:Not on file Group ID:Not on file Type:Self Pay Address: [place], [place] Care Teams Industrial Relations Analyst Relationship Specialty Start Date End Date Sylvie Alvarenga MD [address] [facility] [address] [place] [address] PCP - General 07/15/19
--- OUTSIDE RECORDS SUMMARY | 2025-02-09 11:40 | XMS_ITS | Clinical Summary ---
Author Organization [facility] Address [address] [place] [address] Care Team Providers Care Concrete Form Setter Name Role Phone Fatimah Morales Primary Care Provider [phone] Allergies No known active allergies Medications calcium [...] more drinks on one occasion? Never 12/02/2021 [place] Depression Scale Answer Date Recorded [place] Depression Scale Total 3 12/03/2021 The thought [...] 9 Stacey DOMINGUEZ Katy, MD Complications:None Delivery Location:[facility] Last Filed Vital Signs Vital Sign [...] patient's age to complete this topic Insurance [facility] Advance Directives For more information, please contact: [phone] * Full Code (Latest Code Status on File) Date Activated Date Inactivated Comments 12/02/2021 8:18 PM 12/04/2021 7:25 PM * Full Code Date Activated Date Inactivated Comments 12/02/2021 2:24 AM 12/02/2021 8:18 PM Full CPR in case of cardiopulmonary arrest Care Teams Concrete Form Setter Relationship Specialty Start [place] [address] [place] [id number] PCP - General Physician Tunnel Heading Inspector 11/09/21
--- OUTSIDE RECORDS SUMMARY | 2025-02-09 11:40 | XMS_ITS | Referral Summary ---
Author Organization [facility] Address [address] [place] [address] Care Team Providers Care Spray Dry Operator Name Role Phone Fatimah Morales Primary Care Provider [phone] Allergies No known active allergies Medications calcium [...] more drinks on one occasion? Never 12/02/2021 [place] Depression Scale Answer Date Recorded [place] Depression Scale Total 3 12/03/2021 The thought [...] Plan of Treatment Not on file Insurance [facility] Advance Directives For more information, please contact: [phone] * Full Code (Latest Code Status on File) Date Activated Date Inactivated Comments 12/02/2021 8:18 PM 12/04/2021 7:25 PM * Full Code Date Activated Date Inactivated Comments 12/02/2021 2:24 AM 12/02/2021 8:18 PM Full CPR in case of cardiopulmonary arrest Care Teams Spray Dry Operator Relationship Specialty Start Date End Date Fatimah Morales PA [address] [place] [address] PCP - General Physician Regulation Supervisor 11/09/21
[2025-02-09 11:45] LABS: Hematocrit 39.0 % (37.0-47.0); Hemoglobin 13.2 g/dL (12.0-15.0); Immature Granulocyte Percent A 0.7 % (0-0.5); Lymphocytes Absolute Auto 2.84 K/mm3 (0.9-3.2); Mean Corpuscular HGB Conc 33.8 g/dl (32-36); Mean Corpuscular Hemoglobin 29.1 pg (26-34); Mean Corpuscular Volume 85.9 fl (80-100); Nucleated Red Blood Cells Absolute Auto 0.000 K/mm3 (0.0-0.012); Nucleated Red Blood Cells Perc 0.0 % (0.0-0.2); Platelet Count Result 311 k/mm3 (150-375); Red Blood Count 4.54 M/mm3 (4.2-5.4); White Blood Count 8.8 K/mm3 (4.5-10.0)
[2025-02-09 11:51] LABS: Add Urine Microscopic? YES; Appearance Urine Cloudy (Clear); Glucose Urine UA Negative (Negative); Leukocyte Esterase Ur 2+ LEU/UL (Negative); Nitrate Urine Negative (Negative); Non Pathogenic Casts 0-2; Specific Grav Ur 1.027 (1.001-1.035)
[2025-02-09 12:08] LABS: INR 1.1; Prothrombin Time 14.7 Seconds (11.1-14.7)
[2025-02-09 12:09] LABS: Partial Thromboplastin Time 29.9 Seconds (22.3-36.8)
[2025-02-09 12:19] LABS: Alanine Aminotransferase 62 U/L (6-35); Albumin Level 4.7 g/dL (3.5-5.1); Alkaline Phosphatase 69 U/L (38-126); Anion Gap 9 mmol/L (4-12); Aspartate Amino Transferase 47 U/L (14-36); Bilirubin,Total 0.5 mg/dL (0.2-1.3); Blood Urea Nitrogen 11 mg/dL (7-17); Calcium 9.5 mg/dL (8.4-10.2); Carbon Dioxide 21 mmol/L (22-30); Chloride 104 mmol/L (98-107); Estimated CRCL calculation 136 ml/min; Estimated Glomerular Filt Rate > 60; Glucose 106 mg/dL (65-110); Potassium 3.8 mmol/L (3.4-5.0); Sodium 134 mmol/L (137-145); Total Protein 8.8 g/dL (6.3-8.2)
[2025-02-09 12:36] LABS: Beta HCG Quantitative 242.56 mIU/ML
[2025-02-09 12:52] VITALS: BP 138/79; PULSE 77; RESP 16; O2SAT 99
[2025-02-09] MEDS: CEPHALEXIN 500 MG CAPSULE PO (13:38)
[2025-02-09] MEDS: ACETAMINOPHEN 500 MG TABLET 1000 MG PO (13:38)
== END 2025-02-09 14:04 | disposition home or self-care (01) ==
PROVIDERS: Emergency Provider Physician Assistant
DX: O20.0 Threatened abortion (principal); O23.10 Infections of bladder in pregnancy, unspecified trimester
CPT/HCPCS: 36415; 76801; 80053; 81001; 81025; 84702; 85025; 85461; 85610; 85730; 86850; 86900; 86901; 87086; 99284; A9270

== ENCOUNTER 2025-02-11 07:12 | Outpatient (CLI) | payer OTHER, SELFPAY ==
--- OUTSIDE RECORDS SUMMARY | 2025-02-11 07:16 | XMS_ITS | Clinical Summary ---
Author Organization [facility] Address [address] [place] [address] Care Team Providers Care Director Security Risk Management Name Role Phone Fatimah Morales Primary Care Provider [phone] Allergies No known active allergies Medications calcium [...] more drinks on one occasion? Never 12/02/2021 [place] Depression Scale Answer Date Recorded [place] Depression Scale Total 3 12/03/2021 The thought [...] 9 Stacey DOMINGUEZ Katy, MD Complications:None Delivery Location:[facility] ([facility]) Last Filed Vital Signs Vital Sign [...] patient's age to complete this topic Insurance [facility] Advance Directives For more information, please contact: [phone] * Full Code (Latest Code Status on File) Date Activated Date Inactivated Comments 12/02/2021 8:18 PM 12/04/2021 7:25 PM * Full Code Date Activated Date Inactivated Comments 12/02/2021 2:24 AM 12/02/2021 8:18 PM Full CPR in case of cardiopulmonary arrest Care Teams Director Security Risk Management Relationship Specialty [place] [address] [place] [address] PCP - General Physician Diesel Engine Assembler 11/09/21
--- OUTSIDE RECORDS SUMMARY | 2025-02-11 07:16 | XMS_ITS | Clinical Summary ---
Author Organization [facility] Address [address] [facility] [place] [address] Care Team Providers Care Manager Utility Name Role Phone Sylvie Alvarenga MD Primary Care Provider Source Comments [facility],non-owned Affiliates and Associated Physician Practices is amultiple site organization consisting of ambulatory clinics and hospital sitesin [place], [place], [place] and [place]. This disclosure is being madepursuant to the Care Everywhere program and may not contain all information available regarding this patient. 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 Gender Identity Not on file Sexual Orientation Not on file Last Filed Vital Signs Vital Sign Reading Time Taken Comments Blood Pressure 127/67 10/12/2021 2:36 PM CDT Pulse 76 10/12/2021 2:36 PM CDT Temperature 37.1 C (98.7 F) 07/13/2019 6:36 PM GOVERNMENT EMPLOYEE Respiratory Rate 18 10/12/2021 2:36 PM CDT Oxygen Saturation 99% 07/13/2019 6:36 PM GOVERNMENT EMPLOYEE Inhaled Oxygen Concentration 50% 11/11/2009 3 :15 [...] patient's age to complete this topic Insurance [facility] * Guarantor: SILVIO PATINO Account Type Relation to Patient Date of Phone Billing Address Personal/Family [address] [place], [place] [id number] [place] [address] SELF PAY NO INSURANCE Member Subscriber Plan / Payer (Ef fective for All Dates) Name:Silvio Patino Member ID:Not on file Relation to Subscriber:Not on file Name:SILVIO PATINO Subscriber ID:Not on file Address: [address] [place] [address] Payer ID:Not on file Group ID:Not on file Type:Self Pay Address: [place], [place] * Guarantor: SILVIO PATINO Account Type Relation to Patient Date of Phone Billing Address Personal/Family [address] [place] [address] [facility] SELF PAY NO INSURANCE Member Subscriber Plan / Payer (Ef fective for All Dates) Name:Silvio Patino Member ID:Not on file Relation to Subscriber:Not on file Name:SILVIO PATINO Subscriber ID:Not on file Address: [address] [place] [address] Payer ID:Not on file Group ID:Not on file Type:Self Pay Address: [place], [place] * Guarantor: SILVIO PATINO Account Type Relation to Patient Date of Phone Billing Address Personal/Family [address] [place] [address] [facility] SELF PAY NO INSURANCE Member Subscriber Plan / Payer (Ef fective for All Dates) Name:Silvio Patino Member ID:Not on file Relation to Subscriber:Not on file Name:SILVIO PATINO Subscriber ID:Not on file Address: [address] [place] [address] Payer ID:Not on file Group ID:Not on file Type:Self Pay Address: [place], [place] Care Teams Manager Utility Relationship Specialty Start Date End Date Sylvie Alvarenga MD [address] [facility] [address] [place] [address] PCP - General 07/15/19
--- OUTSIDE RECORDS SUMMARY | 2025-02-11 07:16 | XMS_ITS | Referral Summary ---
Author Organization [facility] Address [address] [place] [address] Care Team Providers Care Nocturnist Physician Name Role Phone Fatimah Morales Primary Care Provider [phone] Allergies No known active allergies Medications calcium [...] more drinks on one occasion? Never 12/02/2021 [place] Depression Scale Answer Date Recorded [place] Depression Scale Total 3 12/03/2021 The thought [...] Plan of Treatment Not on file Insurance [facility] Advance Directives For more information, please contact: [phone] * Full Code (Latest Code Status on File) Date Activated Date Inactivated Comments 12/02/2021 8:18 PM 12/04/2021 7:25 PM * Full Code Date Activated Date Inactivated Comments 12/02/2021 2:24 AM 12/02/2021 8:18 PM Full CPR in case of cardiopulmonary arrest Care Teams Nocturnist Physician Relationship Specialty Start Date End Date Fatimah Morales PA [address] [place] [address] PCP - General Physician Electrolog Operator 11/09/21
[2025-02-11 09:06] LABS: Beta HCG Quantitative 465.46 mIU/ML
== END 2025-02-11 07:13 | disposition home or self-care (01) ==
PROVIDERS: Visit Provider Physician Assistant
DX: O20.0 Threatened abortion (principal); Z3A.00 Weeks of gestation of pregnancy not specified
CPT/HCPCS: 36415; 84702

== ENCOUNTER 2025-02-18 04:49 | Emergency (ER) | payer OTHER, SELFPAY ==
--- NOTE | ~2025-02-18 | US_ITS ---
EXAMINATION: US OB <=14 wk fetus w TV DATE: 02/18/2025 08:23 INDICATION: . Vaginal bleeding. TECHNIQUE: Real-time transabdominal and transvaginal obstetric ultrasound. FINDINGS: Comparison ultrasound dated 02/09/2025 The uterus measures 8.1 x 3.6 x 5.1 cm. No intrauterine gestational sac, pole or yolk sac ident ified. There are nabothian cysts. Ovaries within normal limits without significant solid or cystic ma ss. Normal Doppler signal in both ovaries. IMPRESSION: 1. No evidence for intrauterine . Differential diagnosis includes very early intrauterine pr egnancy, failed and ectopic . Recommend follow-up with serial quantitative beta-hC G levels and ultrasound as clinically warranted. Reviewed, dictated and finalized at location A. IMPRESSION: 1. No evidence for intrauterine . Differential diagnosis includes very early intrauterine , failed and ectopic . Recommen d follow-up with serial quantitative beta-hCG levels and ultrasound as clinical ly warranted.
--- OUTSIDE RECORDS SUMMARY | 2025-02-18 04:52 | XMS_ITS | Clinical Summary ---
Author Organization [facility] Address [address] [facility] [place] [address] Care Team Providers Care Cloud Systems Administrator Name Role Phone Sylvie Alvarenga MD Primary Care Provider [phone] Source Comments [facility],non-owned Affiliates and Associated Physician Practices is amultiple site organization consisting of ambulatory clinics and hospital sitesin [place], [place], [place] and [place]. This disclosure is being madepursuant to the Care Everywhere program and may not contain all information available regarding this patient. 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 Gender Identity Not on file Sexual Orientation Not on file Last Filed Vital Signs Vital Sign Reading Time Taken Comments Blood Pressure 127/67 10/12/2021 2:36 PM CDT Pulse 76 10/12/2021 2:36 PM CDT Temperature 37.1 C (98.7 F) 07/13/2019 6:36 PM CLERICAL RECEPTIONIST Respiratory Rate 18 10/12/2021 2:36 PM CDT Oxygen Saturation 99% 07/13/2019 6:36 PM CLERICAL RECEPTIONIST Inhaled Oxygen Concentration 50% 11/11/2009 3 :15 [...] patient's age to complete this topic Insurance [facility] * Guarantor: SILVIO PATINO Account Type Relation to Patient Date of Phone Billing Address Personal/Family [address] [place], [place] [id number] [place] [address] SELF PAY NO INSURANCE Member Subscriber Plan / Payer (Ef fective for All Dates) Name:Silvio Patino Member ID:Not on file Relation to Subscriber:Not on file Name:SILVIO PATINO Subscriber ID:Not on file Address: [address] [place] [address] Payer ID:Not on file Group ID:Not on file Type:Self Pay Address: [place], [place] * Guarantor: SILVIO PATINO Account Type Relation to Patient Date of Phone Billing Address Personal/Family [address] [place] [address] [facility] SELF PAY NO INSURANCE Member Subscriber Plan / Payer (Ef fective for All Dates) Name:Silvio Patino Member ID:Not on file Relation to Subscriber:Not on file Name:SILVIO PATINO Subscriber ID:Not on file Address: [address] [place] [address] Payer ID:Not on file Group ID:Not on file Type:Self Pay Address: [place], [place] * Guarantor: SILVIO PATINO Account Type Relation to Patient Date of Phone Billing Address Personal/Family [address] [place] [id number] [facility] SELF PAY NO INSURANCE Member Subscriber Plan / Payer (Ef fective for All Dates) Name:Silvio Patino Member ID:Not on file Relation to Subscriber:Not on file Name:SILVIO PATINO Subscriber ID:Not on file Address: [address] [place] [id number] Payer ID:Not on file Group ID:Not on file Type:Self Pay Address: [place], [place] Care Teams Cloud Systems Administrator Relationship Specialty Start Date End Date Sylvie Alvarenga MD [address] [facility] [address] [place] [address] PCP - General 07/15/19
--- OUTSIDE RECORDS SUMMARY | 2025-02-18 04:52 | XMS_ITS | Clinical Summary ---
Author Organization [facility] Address [address] [place] [address] Care Team Providers Care Loan Interviewer Name Role Phone Fatimah Morales Primary Care Provider [phone] Allergies No known active allergies Medications calcium [...] more drinks on one occasion? Never 12/02/2021 [place] Depression Scale Answer Date Recorded [place] Depression Scale Total 3 12/03/2021 The thought [...] 9 Stacey DOMINGUEZ Katy, MD Complications:None Delivery Location:[facility] ([facility]) Last Filed Vital Signs Vital [...] patient's age to complete this topic Insurance [facility] Advance Directives For more information, please contact: [phone] * Full Code (Latest Code Status on File) Date Activated Date Inactivated Comments 12/02/2021 8:18 PM 12/04/2021 7:25 PM * Full Code Date Activated Date Inactivated Comments 12/02/2021 2:24 AM 12/02/2021 8:18 PM Full CPR in case of cardiopulmonary arrest Care Teams Loan Interviewer Relationship Specialty [place] [address] [place] [id number] PCP - General Physician Commercial Lines Account Assistant 11/09/21
[2025-02-18 04:57] VITALS: BP 145/74; PULSE 92; RESP 16; TEMP 37.2; O2SAT 100
[2025-02-18 05:24] LABS: BEDSIDEPREGUCG Positive (Negative)
--- OUTSIDE RECORDS SUMMARY | 2025-02-18 05:33 | XMS_ITS | Clinical Summary ---
Author Organization [facility] Address [address] [place] [address] Care Team Providers Care Ironing Worker Name Role Phone Fatimah Morales Primary Care Provider [phone] Allergies No known active allergies Medications calcium [...] more drinks on one occasion? Never 12/02/2021 [place] Depression Scale Answer Date Recorded [place] Depression Scale Total 3 12/03/2021 The thought [...] 9 Stacey DOMINGUEZ Katy, MD Complications:None Delivery Location:[facility] ([facility]) Last Filed Vital Signs Vital [...] patient's age to complete this topic Insurance [facility] Advance Directives For more information, please contact: [phone] * Full Code (Latest Code Status on File) Date Activated Date Inactivated Comments 12/02/2021 8:18 PM 12/04/2021 7:25 PM * Full Code Date Activated Date Inactivated Comments 12/02/2021 2:24 AM 12/02/2021 8:18 PM Full CPR in case of cardiopulmonary arrest Care Teams Ironing Worker Relationship Specialty [place] [address] [place] [id number] PCP - General Physician On Air Host 11/09/21
--- OUTSIDE RECORDS SUMMARY | 2025-02-18 05:33 | XMS_ITS | Clinical Summary ---
Author Organization [facility] Address [address] [place] [address] Care Team Providers Care Muleser Name Role Phone Sylvie Alvarenga MD Primary Care Provider [phone] Source Comments [facility],non-owned Affiliates and Associated Physician Practices is amultiple site organization consisting of ambulatory clinics and hospital sitesin [place], [place], [place] and [place]. This disclosure is being madepursuant to the Care Everywhere program and may not contain all information available regarding this patient. 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 Gender Identity Not on file Sexual Orientation Not on file Last Filed Vital Signs Vital Sign Reading Time Taken Comments Blood Pressure 127/67 10/12/2021 2:36 PM CDT Pulse 76 10/12/2021 2:36 PM CDT Temperature 37.1 C (98.7 F) 07/13/2019 6:36 PM NUCLEAR MEDICINE SPECIALIST Respiratory Rate 18 10/12/2021 2:36 PM CDT Oxygen Saturation 99% 07/13/2019 6:36 PM NUCLEAR MEDICINE SPECIALIST Inhaled Oxygen Concentration 50% 11/11/2009 3 :15 [...] patient's age to complete this topic Insurance [facility] * Guarantor: SILVIO PATINO Account Type Relation to Patient Date of Phone Billing Address Personal/Family [address] [place], [place] [id number] [place] [address] SELF PAY NO INSURANCE Member Subscriber Plan / Payer (Ef fective for All Dates) Name:Silvio Patino Member ID:Not on file Relation to Subscriber:Not on file Name:SILVIO PATINO Subscriber ID:Not on file Address: [address] [place] [address] Payer ID:Not on file Group ID:Not on file Type:Self Pay Address: [place], [place] * Guarantor: SILVIO PATINO Account Type Relation to Patient Date of Phone Billing Address Personal/Family [address] [place] [address] [facility] SELF PAY NO INSURANCE Member Subscriber Plan / Payer (Ef fective for All Dates) Name:Silvio Patino Member ID:Not on file Relation to Subscriber:Not on file Name:SILVIO PATINO Subscriber ID:Not on file Address: [address] [place] [address] Payer ID:Not on file Group ID:Not on file Type:Self Pay Address: [place], [place] * Guarantor: SILVIO PATINO Account Type Relation to Patient Date of Phone Billing Address Personal/Family [address] [place] [id number] [facility] SELF PAY NO INSURANCE Member Subscriber Plan / Payer (Ef fective for All Dates) Name:Silvio Patino Member ID:Not on file Relation to Subscriber:Not on file Name:SILVIO PATINO Subscriber ID:Not on file Address: [address] [place] [id number] Payer ID:Not on file Group ID:Not on file Type:Self Pay Address: [place], [place] Care Teams Muleser Relationship Specialty Start Date End Date Sylvie Alvarenga MD [address] [facility] [address] [place] [address] PCP - General 07/15/19
--- NOTE | 2025-02-18 05:40 | ED_ITS ---
HPI - Female Genitourinary General Chief complaint: Vaginal Bleeding <Coty George MD - Last Filed: 02/18/25 08:02> Stated complaint: cramping/bleeding; 5 weeks <Coty George MD - Last Filed: 02/18/25 08:02> Time Seen by Provider: 02/18/25 05:15 <Coty George MD - Last Filed: 02/18/25 08:02> Source: patient and other (Boyfriend present) <Coty George MD - Last Filed: 02/18/25 08:02> Mode of arrival: ambulatory <Coty George MD - Last Filed: 02/18/25 08:02> Limitations: no limitations <Coty George MD - Last Filed: 02/18/25 08:02> History of Present Illness HPI Narrative: 24-year-old G2 P 1001 female Patient presents with report of vaginal bleeding and abdominal pain/cramping. She had unprotected sex around the 1st week of January. She took Plan B on January 16. She had a positive test at home on 01/31/2025 and then again on 02/03/2025. However, she thought that she was starting her normal menstrual period on 01/31/2025 is a lasted 3 days. However it subsequently restarted the next day and has been intermittently stopping and starting since. She has presented to the emergency department for this already and ultrasound was performed however no confirmation of intrauterine . Her Ob Gyne she states is here at [facility] although she does not know their name. Patient states that the pain is low in the abdomen and she feels like she is bloated. She feels nauseated but no vomiting. Denies any fevers but has been having chills. She notes that the vaginal bleeding is primarily noticed when she wipes. She is not saturating pads. She has been using Tylenol. She is not on anticoagulation. Last oral intake was at 2:00 a.m.. <Coty George MD - Last Filed: 02/18/25 08:02> Related Data Allergies/Adverse reactions: Allergies Allergy/AdvReac Type Severity Reaction Status Date / Time No Known Allergies Allergy Verified 02/18/25 04:50 <Coty George MD - Last Filed: 02/18/25 08:02> PMFSH Past Medical History Medical History: Medical History Depression Anxiety Epigastric pain Nausea and vomiting in adult Choledocholithiasis Motion sickness <Coty George MD - Last Filed: 02/18/25 08:02> Surgical History Surgical History: Surgical History Hx laparoscopic cholecystectomy Dr. Tc Carpio 12/30/23 History of ventricular septal defect repair <Coty George MD - Last Filed: 02/18/25 08:02> Family History Family History: Family History Mother Thyroid cancer <Coty George MD - Last Filed: 02/18/25 08:02> Social History Social History: Social History Smoking status: Never smoker Alcohol intake: current Drinks per week: 1 Substance use: never Do You Feel Safe in your Home?: Yes Lack of Transportation: No Lack of Food: Never True Current Housing: I Have Housing Concerned About Future Housing: No Difficulty Paying Gas/Electric Bills: No Difficulty Paying for Meds: No Currently Unemployed: No Education: Associate Degree Difficulty w/ Childcare or Family Care: No Spiritual care concerns: No <Coty George MD - Last Filed: 02/18/25 08:02> Exam 2 Narrative: GENERAL: Well-appearing, well-nourished, and in no acute distress. HEAD: Normocephalic, atraumatic. EYES: Non injected, non icteric ENT: Nares clear, no rhinorrhea or epistaxis. Gross auditory acuity intact. NECK: Supple. No meningismus. CHEST: Speaking in full sentences. No respiratory distress. HEART: Regular rate and rhythm. . ABDOMEN: Soft, nondistended. No rigidity or guarding. Not peritoneal EXTREMITIES: Normal range of motion. No lower extremity edema. SKIN: Warm, dry, no rash. NEURO: No focal deficits. Alert and oriented. Answering questions. Following commands. Normal speech without aphasia or dysarthria. PSYCH: Normal mood and affect. <Coty George MD - Last Filed: 02/18/25 08:02> Course Course Emergency Course: Spoke with Shilpa Fitzgerald CORRECTIONAL MEDICINE PHYSICIAN. She will see the patient in clinic at 11a. Have patient educated on lab and imaging findings. Appropriate for discharge. < Juan Antonio Ron MD - Last Filed: 02/18/25 09:31> Vital Signs Vital signs: Vital Signs Temperature 98.9 F 02/18/25 04:57 Pulse Rate 92 02/18/25 04:57 Respiratory Rate 16 02/18/25 04:57 Blood Pressure 145/74 H 02/18/25 04:57 Pulse Oximetry 100 02/18/25 04:57 Oxygen Delivery Room Air 02/18/25 04:57 Temperature 97.9 F 02/18/25 08:00 Pulse Rate 73 02/18/25 08:00 Respiratory Rate 16 02/18/25 08:00 Blood Pressure 109/50 L 02/18/25 08:00 Pulse Oximetry 100 02/18/25 08:00 Oxygen Delivery Room Air 02/18/25 04:57 <Coty George MD - Last Filed: 02/18/25 08:02> Vital Signs Temperature 98.9 F 02/18/25 04:57 Pulse Rate 92 02/18/25 04:57 Respiratory Rate 16 02/18/25 04:57 Blood Pressure 145/74 H 02/18/25 04:57 Pulse Oximetry 100 02/18/25 04:57 Oxygen Delivery Room Air 02/18/25 04:57 Temperature 97.9 F 02/18/25 08:00 Pulse Rate 73 02/18/25 08:00 Respiratory Rate 16 02/18/25 08:00 Blood Pressure 109/50 L 02/18/25 08:00 Pulse Oximetry 100 02/18/25 08:00 Oxygen Delivery Room Air 02/18/25 04:57 <Juan Antonio Ron MD - Last Filed: 02/18/25 09:31> MDM - Female Genitourinary MDM Narrative Medical decision making narrative: 24-year-old 001 female presents with vaginal bleeding abdominal cramping/pain. Patient had unprotected sex around the 1st week of January and took Plan B on January 16. However, she has subsequently had positive home test on 01/31/2025 and 02/03/2025. Despite this patient thought perhaps she was having her normal menstrual. As it started on 01/31/2025 in lasted 3 days but then has recurrently stopped and started since. In the emergency department she is afebrile with vital signs notable for hypertension. She has a normocytic anemia, a 1.3g drop from most recent. Positive urine test. Transaminitis, chronic to some degree. Blood in urine w/o evidence of infection. Up trending beta HCGs are reviewed as is the ultrasound that had been performed patient had presented earlier which was indeterminate for intrauterine . Beta-hCG is 2300 today; ultrasound ordered. Patient signed out to oncoming ED physician pending US. <Coty George MD - Last Filed: 02/18/25 08:02> Differential Diagnosis Differential diagnosis: Likely urinary tract infection and other (Vaginal bleeding during , ectopic , spectrum of miscarriage) <Coty George MD - Last Filed: 02/18/25 08:02> Medical Records Attestation: I reviewed the patient's medical records. <Coty George MD - Last Filed: 02/18/25 08:02> Medical records narrative: Reviewed patient's ED visit and noted that she had a rising beta hCG. Per review of chart, her ObGyn is Shilpa Michel. <Coty George MD - Last Filed: 02/18/25 08:02> Lab Data Attestation: I reviewed the patient's lab results. <Coty George MD - Last Filed: 02/18/25 08:02> Result diagrams: 02/18/25 05:35 02/18/25 05:35 <Coty George MD - Last Filed: 02/18/25 08:02> Labs: Lab Results 02/18/25 02/18/25 02/18/25 Range/Units 05:18 05:35 06:09 WBC 10.0 (4.5-10.0) K/mm3 RBC 4.05 L (4.2-5.4) M/mm3 Hgb 11.9 L (12.0-15.0) g/dL Hct 36.0 L (37.0-47.0) % MCV 88.9 (80-100) fl MCH 29.4 (26-34) pg MCHC 33.1 (32-36) g/dl RDW 13.1 (11.5-14.5) % Plt Count 282 (150-375) k/mm3 MPV 9.0 (7.4-10.4) fl Immature Gran % (Auto) 0.5 (0-0.5) % Neut % (Auto) 62.5 (45.5-73.1) % Lymph % (Auto) 28.2 (18.3-44.2) % [place] % (Auto) 6.3 (2.6-8.5) % Eos % (Auto) 2.1 (0-4.4) % Baso % (Auto) 0.4 (0.2-1.2) % Lymph # (Auto) 2.82 (0.9-3.2) K/mm3 [place] # (Auto) 0.6 (0.1-0.6) K/mm3 Eos # (Auto) 0.2 (0-0.3) K/mm3 Baso # (Auto) 0.0 (0.0-0.1) K/mm3 Abs Immat Gran (auto) 0.05 H (0.00-0.031) K/mm3 Absolute Neuts (auto) 6.3 (1.3-6.7) K/mm3 Absolute Nucleated RBC 0.000 (0.0-0.012) K/mm3 Nucleated RBC % 0.0 (0.0-0.2) % PT 14.2 (11.1-14.7) Seconds INR 1.1 APTT 28.0 (22.3-36.8) Seconds Sodium 137 (137-145) mmol/L Potassium 3.9 (3.4-5.0) mmol/L Chloride 104 (98-107) mmol/L Carbon Dioxide 21 L (22-30) mmol/L Anion Gap 12 (4-12) mmol/L BUN 14 (7-17) mg/dL Creatinine 0.63 L (0.7-1.0) mg/dL Estim Creat Clear Calc Not Reportable Estimated GFR > 60 (59 - ) Glucose 100 (65-110) mg/dL Calcium 9.4 (8.4-10.2) mg/dL Total Bilirubin 0.3 (0.2-1.3) mg/dL AST 63 H (14-36) U/L ALT 94 H (6-35) U/L Alkaline Phosphatase 68 (38-126) U/L Total Protein 8.3 H (6.3-8.2) g/dL Albumin 4.5 (3.5-5.1) g/dL Beta HCG, Quant 2310.40 mIU/ML Urine Color Yellow (Yellow) Urine Appearance Clear (Clear) Urine pH 5.0 (5.0-9.0) Ur Specific [place] 1.043 H (1.001-1.035) Urine Protein Trace (Negative) mg/dL Urine Glucose (UA) Negative (Negative) mg/dL Urine Ketones Negative (Negative) mg/dL Ur Blood (Man) 2+ H (Negative) Urine Nitrate Negative (Negative) Urine Bilirubin Negative (Negative) Urine Urobilinogen 1.0 (<2.0) mg/dL Leukocyte Esterase Rfl Negative (Negative) REAGAN/UL Urine RBC 3-5 H (0-2) /hpf Urine WBC 0-5 (0-3) /hpf Ur Squamous Epith Cells Occasional (Few) /hpf Urine Bacteria Rare /hpf Urine Casts 0-2 POC Urine HCG, Qual Positive (Negative) <Coty George MD - Last Filed: 02/18/25 08:02> Lab Results 02/18/25 02/18/25 02/18/25 Range/Units 05:18 05:35 06:09 WBC 10.0 (4.5-10.0) K/mm3 RBC 4.05 L (4.2-5.4) M/mm3 Hgb 11.9 L (12.0-15.0) g/dL Hct 36.0 L (37.0-47.0) % MCV 88.9 (80-100) fl MCH 29.4 (26-34) pg MCHC 33.1 (32-36) g/dl RDW 13.1 (11.5-14.5) % Plt Count 282 (150-375) k/mm3 MPV 9.0 (7.4-10.4) fl Immature Gran % (Auto) 0.5 (0-0.5) % Neut % (Auto) 62.5 (45.5-73.1) % Lymph % (Auto) 28.2 (18.3-44.2) % [place] % (Auto) 6.3 (2.6-8.5) % Eos % (Auto) 2.1 (0-4.4) % Baso % (Auto) 0.4 (0.2-1.2) % Lymph # (Auto) 2.82 (0.9-3.2) K/mm3 [place] # (Auto) 0.6 (0.1-0.6) K/mm3 Eos # (Auto) 0.2 (0-0.3) K/mm3 Baso # (Auto) 0.0 (0.0-0.1) K/mm3 Abs Immat Gran (auto) 0.05 H (0.00-0.031) K/mm3 Absolute Neuts (auto) 6.3 (1.3-6.7) K/mm3 Absolute Nucleated RBC 0.000 (0.0-0.012) K/mm3 Nucleated RBC % 0.0 (0.0-0.2) % PT 14.2 (11.1-14.7) Seconds INR 1.1 APTT 28.0 (22.3-36.8) Seconds Sodium 137 (137-145) mmol/L Potassium 3.9 (3.4-5.0) mmol/L Chloride 104 (98-107) mmol/L Carbon Dioxide 21 L (22-30) mmol/L Anion Gap 12 (4-12) mmol/L BUN 14 (7-17) mg/dL Creatinine 0.63 L (0.7-1.0) mg/dL Estim Creat Clear Calc Not Reportable Estimated GFR > 60 (59 - ) Glucose 100 (65-110) mg/dL Calcium 9.4 (8.4-10.2) mg/dL Total Bilirubin 0.3 (0.2-1.3) mg/dL AST 63 H (14-36) U/L ALT 94 H (6-35) U/L Alkaline Phosphatase 68 (38-126) U/L Total Protein 8.3 H (6.3-8.2) g/dL Albumin 4.5 (3.5-5.1) g/dL Beta HCG, Quant 2310.40 mIU/ML Urine Color Yellow (Yellow) Urine Appearance Clear (Clear) Urine pH 5.0 (5.0-9.0) Ur Specific [place] 1.043 H (1.001-1.035) Urine Protein Trace (Negative) mg/dL Urine Glucose (UA) Negative (Negative) mg/dL Urine Ketones Negative (Negative) mg/dL Ur Blood (Man) 2+ H (Negative) Urine Nitrate Negative (Negative) Urine Bilirubin Negative (Negative) Urine Urobilinogen 1.0 (<2.0) mg/dL Leukocyte Esterase Rfl Negative (Negative) REAGAN/UL Urine RBC 3-5 H (0-2) /hpf Urine WBC 0-5 (0-3) /hpf Ur Squamous Epith Cells Occasional (Few) /hpf Urine Bacteria Rare /hpf Urine Casts 0-2 POC Urine HCG, Qual Positive (Negative) <Juan Antonio Ron MD - Last Filed: 02/18/25 09:31> Imaging Data Radiologist's impression: ITS Impressions Obstetrics Ultrasound 02/18/25 08:35 IMPRESSION: 1. No evidence for intrauterine . Differential diagnosis includes very early intrauterine , failed and ectopic . Recommend follow-up with serial quantitative beta-hCG levels and ultrasound as clinically warranted. <Juan Antonio Ron MD - Last Filed: 02/18/25 09:31> Discharge Plan Discharge Clinical Impression: Normocytic anemia, Positive test, Vaginal bleeding affecting early , , location unknown <Coty George MD - Last Filed: 02/18/25 08:02> Patient Disposition: Still a Patient <Coty George MD - Last Filed: 02/18/25 08:02> Condition: Stable <Coty George MD - Last Filed: 02/18/25 08:02> Instructions: Threatened Miscarriage (ED) <Coty George MD - Last Filed: 02/18/25 08:02> Additional Instructions: Return ER if you develop severe lower abdominal pain, your bleeding through 1 pad an hour for 3 continuous hours, or you have additional concerns. Follow-up with your OB office at 11:00 a.m. today. <Coty George MD - Last Filed: 02/18/25 08:02> Patient Language: Belizean <Coty George MD - Last Filed: 02/18/25 08:02> Prescriptions: No Action cephalexin 500 mg capsule 500 mg PO Q8H 7 Days Qty: 21 0RF metoclopramide HCl 10 mg tablet 10 mg PO Q6H PRN (Reason: nausea and vomiting) Qty: 14 0RF acetaminophen 500 mg capsule 500 mg PO Q6H PRN (Reason: pain) Qty: 14 0RF metronidazole 500 mg tablet 500 mg PO Q12H Qty: 14 0RF <Coty George MD - Last Filed: 02/18/25 08:02> Follow-up/Referrals: Shilpa Fitzgerald APRN [Advanced Practice Nurse] - 02/18/25 11:00 am <Coty George MD - Last Filed: 02/18/25 08:02>
[2025-02-18 05:41] LABS: Hematocrit 36.0 % (37.0-47.0); Hemoglobin 11.9 g/dL (12.0-15.0); Immature Granulocyte Percent A 0.5 % (0-0.5); Lymphocytes Absolute Auto 2.82 K/mm3 (0.9-3.2); Mean Corpuscular HGB Conc 33.1 g/dl (32-36); Mean Corpuscular Hemoglobin 29.4 pg (26-34); Mean Corpuscular Volume 88.9 fl (80-100); Nucleated Red Blood Cells Absolute Auto 0.000 K/mm3 (0.0-0.012); Nucleated Red Blood Cells Perc 0.0 % (0.0-0.2); Platelet Count Result 282 k/mm3 (150-375); Red Blood Count 4.05 M/mm3 (4.2-5.4); White Blood Count 10.0 K/mm3 (4.5-10.0)
[2025-02-18 05:56] LABS: INR 1.1; Partial Thromboplastin Time 28.0 Seconds (22.3-36.8); Prothrombin Time 14.2 Seconds (11.1-14.7)
[2025-02-18 06:04] LABS: Alanine Aminotransferase 94 U/L (6-35); Albumin Level 4.5 g/dL (3.5-5.1); Alkaline Phosphatase 68 U/L (38-126); Anion Gap 12 mmol/L (4-12); Aspartate Amino Transferase 63 U/L (14-36); Bilirubin,Total 0.3 mg/dL (0.2-1.3); Blood Urea Nitrogen 14 mg/dL (7-17); Calcium 9.4 mg/dL (8.4-10.2); Carbon Dioxide 21 mmol/L (22-30); Chloride 104 mmol/L (98-107); Estimated Glomerular Filt Rate > 60; Glucose 100 mg/dL (65-110); Potassium 3.9 mmol/L (3.4-5.0); Sodium 137 mmol/L (137-145); Total Protein 8.3 g/dL (6.3-8.2)
[2025-02-18] MEDS: ACETAMINOPHEN 500 MG TABLET 1000 MG PO (06:18)
[2025-02-18 06:20] LABS: Beta HCG Quantitative 2310.40 mIU/ML
[2025-02-18 06:23] LABS: Add Urine Microscopic? YES; Appearance Urine Clear (Clear); Glucose Urine UA Negative (Negative); Leukocyte Esterase Ur Negative LEU/UL (Negative); Nitrate Urine Negative (Negative); Non Pathogenic Casts 0-2; Specific Grav Ur 1.043 (1.001-1.035)
[2025-02-18 07:00] VITALS: BP 113/44; PULSE 87; RESP 16; TEMP 36.6; O2SAT 98
[2025-02-18 08:00] VITALS: BP 109/50; PULSE 73; RESP 16; TEMP 36.6; O2SAT 100
[2025-02-18 09:00] VITALS: BP 108/68; PULSE 99; RESP 16; TEMP 36.6; O2SAT 98
== END 2025-02-18 09:48 | disposition home or self-care (01) ==
PROVIDERS: Student in an Organized Health Care Education/Training Program; Emergency Provider Emergency Medicine
DX: O20.9 Hemorrhage in early pregnancy, unspecified (principal); O99.011 Anemia complicating pregnancy, first trimester; D64.9 Anemia, unspecified; Z90.49 Acquired absence of other specified parts of digestive tract; Z3A.01 Less than 8 weeks gestation of pregnancy
CPT/HCPCS: 36415; 76801; 76817; 80053; 81001; 81025; 84702; 85025; 85610; 85730; 99284; A9270

== ENCOUNTER 2025-02-22 14:42 | Outpatient (CLI) | payer OTHER, SELFPAY ==
--- OUTSIDE RECORDS SUMMARY | 2025-02-22 14:56 | XMS_ITS | Clinical Summary ---
Author Organization [facility] Address [address] [place] [address] Care Team Providers Care Mattress Filler Name Role Phone Fatimah Morales Primary Care Provider [phone] Allergies No known active allergies Medications calcium [...] more drinks on one occasion? Never 12/02/2021 [place] Depression Scale Answer Date Recorded [place] Depression Scale Total 3 12/03/2021 The thought [...] 9 Stacey DOMINGUEZ Katy, MD Complications:None Delivery Location:[facility] ([facility]) Last Filed Vital Signs Vital Sign [...] patient's age to complete this topic Insurance [facility] Advance Directives For more information, please contact: [phone] * Full Code (Latest Code Status on File) Date Activated Date Inactivated Comments 12/02/2021 8:18 PM 12/04/2021 7:25 PM * Full Code Date Activated Date Inactivated Comments 12/02/2021 2:24 AM 12/02/2021 8:18 PM Full CPR in case of cardiopulmonary arrest Care Teams Mattress Filler Relationship Specialty [place] [address] [place] [id number] PCP - General Physician Director Data 11/09/21
--- OUTSIDE RECORDS SUMMARY | 2025-02-22 14:56 | XMS_ITS | Clinical Summary ---
Author Organization [facility] Address [address] [place] [address] Care Team Providers Care Bag Worker Name Role Phone Sylvie Alvarenga MD Primary Care Provider [phone] Source Comments [facility],non-owned Affiliates and Associated Physician Practices is amultiple site organization consisting of ambulatory clinics and hospital sitesin [place], [place], [place] and [place]. This disclosure is being madepursuant to the Care Everywhere program and may not contain all information available regarding this patient. 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 Gender Identity Not on file Sexual Orientation Not on file Last Filed Vital Signs Vital Sign Reading Time Taken Comments Blood Pressure 127/67 10/12/2021 2:36 PM CDT Pulse 76 10/12/2021 2:36 PM CDT Temperature 37.1 C (98.7 F) 07/13/2019 6:36 PM RADIOGRAPHER TECHNOLOGIST Respiratory Rate 18 10/12/2021 2:36 PM CDT Oxygen Saturation 99% 07/13/2019 6:36 PM RADIOGRAPHER TECHNOLOGIST Inhaled Oxygen Concentration 50% 11/11/2009 3 :15 [...] patient's age to complete this topic Insurance [facility] * Guarantor: SILVIO PATINO Account Type Relation to Patient Date of Phone Billing Address Personal/Family [address] [place], [place] [id number] [place] [address] SELF PAY NO INSURANCE Member Subscriber Plan / Payer (Ef fective for All Dates) Name:Silvio Patino Member ID:Not on file Relation to Subscriber:Not on file Name:SILVIO PATINO Subscriber ID:Not on file Address: [address] [place] [address] Payer ID:Not on file Group ID:Not on file Type:Self Pay Address: [place], [place] * Guarantor: SILVIO PATINO Account Type Relation to Patient Date of Phone Billing Address Personal/Family [address] [place] [address] [facility] SELF PAY NO INSURANCE Member Subscriber Plan / Payer (Ef fective for All Dates) Name:Silvio Patino Member ID:Not on file Relation to Subscriber:Not on file Name:SILVIO PATINO Subscriber ID:Not on file Address: [address] [place] [address] Payer ID:Not on file Group ID:Not on file Type:Self Pay Address: [place], [place] * Guarantor: SILVIO PATINO Account Type Relation to Patient Date of Phone Billing Address Personal/Family [address] [place] [address] [facility] SELF PAY NO INSURANCE Member Subscriber Plan / Payer (Ef fective for All Dates) Name:Silvio Patino Member ID:Not on file Relation to Subscriber:Not on file Name:SILVIO PATINO Subscriber ID:Not on file Address: [address] [place] [id number] Payer ID:Not on file Group ID:Not on file Type:Self Pay Address: [place], [place] Care Teams Bag Worker Relationship Specialty Start Date End Date Sylvie Alvarenga MD [address] [place] [address] PCP - General 07/15/19
[2025-02-22 15:36] LABS: Beta HCG Quantitative 3982.60 mIU/ML
== END 2025-02-22 14:43 | disposition home or self-care (01) ==
LOC: ANHLAB 14:44
PROVIDERS: Visit Provider Nurse Practitioner Family
DX: O20.0 Threatened abortion (principal); Z3A.00 Weeks of gestation of pregnancy not specified
CPT/HCPCS: 36415; 84702

== ENCOUNTER 2025-02-23 12:11 | Emergency (ER) | payer OTHER, SELFPAY ==
--- NOTE | ~2025-02-23 | US_ITS ---
EXAMINATION: US OB <=14 wk fetus w TV DATE: 02/23/2025 13:35 INDICATION: Vaginal bleeding and pelvic pain. Evaluate for early or ectopic . TECHNIQUE: Real-time transabdominal and transvaginal obstetric ultrasound. FINDINGS: Comparison to ultrasound dated 02/18/2025 The uterus measures 8.4 x 3.9 x 5.1 cm. There is an intrauterine gestational sac, with pole shelli ntified. Myometrial echotexture is homogeneous. No intrauterine gestational sac or pole. Endome trium measures 12 mm in thickness and homogeneous in echotexture. Follicular changes noted in the adn exa without evidence of adnexal mass or complex cyst. Small amount of free fluid in the pelvic cul-de -sac. IMPRESSION: 1. No evidence of intrauterine . Differential diagnosis includes very early intrauterine pre gnancy, early loss, ectopic an anovulatory cycle or hormonal imbalance. Recommend follow-up with quantitative beta-hCG levels and ultrasound as clinically warranted. Reviewed, dictated and finalized at location A. IMPRESSION: 1. No evidence of intrauterine . Differential diagnosis includes very early intrauterine , early loss, ectopic an anovul atory cycle or hormonal imbalance. Recommend follow-up with quantitative beta-h CG levels and ultrasound as clinically warranted.
[2025-02-23 12:19] VITALS: BP 134/63; PULSE 88; RESP 18; TEMP 36.6; O2SAT 98
[2025-02-23 12:29] LABS: BEDSIDEPREGUCG Positive (Negative)
--- OUTSIDE RECORDS SUMMARY | 2025-02-23 12:37 | XMS_ITS | Clinical Summary ---
Author Organization [facility] Address [address] [place] [address] Care Team Providers Care Data Entry Associate Name Role Phone Fatimah Morales Primary Care Provider [phone] Allergies No known active allergies Medications calcium [...] more drinks on one occasion? Never 12/02/2021 [place] Depression Scale Answer Date Recorded [place] Depression Scale Total 3 12/03/2021 The thought [...] 9 Stacey DOMINGUEZ Katy, MD Complications:None Delivery Location:[facility] ([facility]) Last Filed Vital Signs Vital [...] age to complete this topic Insurance [facility] Advance Directives For more information, please contact: [phone] * Full Code (Latest Code Status on File) Date Activated Date Inactivated Comments 12/02/2021 8:18 PM 12/04/2021 7:25 PM * Full Code Date Activated Date Inactivated Comments 12/02/2021 2:24 AM 12/02/2021 8:18 PM Full CPR in case of cardiopulmonary arrest Care Teams Data Entry Associate Relationship Specialty [place] [address] [place] [address] PCP - General Physician Modeling Teacher 11/09/21
--- OUTSIDE RECORDS SUMMARY | 2025-02-23 12:37 | XMS_ITS | Clinical Summary ---
Author Organization [facility] Address [address] [place] [address] Care Team Providers Care Staff Nurse Anesthetist Name Role Phone Sylvie Alvarenga MD Primary Care Provider [phone] Source Comments [facility],non-owned Affiliates and Associated Physician Practices is amultiple site organization consisting of ambulatory clinics and hospital sitesin [place], [place], [place] and [place]. This disclosure is being madepursuant to the Care Everywhere program and may not contain all information available regarding this patient. 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 Gender Identity Not on file Sexual Orientation Not on file Last Filed Vital Signs Vital Sign Reading Time Taken Comments Blood Pressure 127/67 10/12/2021 2:36 PM CDT Pulse 76 10/12/2021 2:36 PM CDT Temperature 37.1 C (98.7 F) 07/13/2019 6:36 PM METAL FABRICATOR WELDER Respiratory Rate 18 10/12/2021 2:36 PM CDT Oxygen Saturation 99% 07/13/2019 6:36 PM METAL FABRICATOR WELDER Inhaled Oxygen Concentration 50% 11/11/2009 3 :15 [...] patient's age to complete this topic Insurance [facility] * Guarantor: SILVIO PATINO Account Type Relation to Patient Date of Phone Billing Address Personal/Family [address] [place], [place] [id number] [place] [address] SELF PAY NO INSURANCE Member Subscriber Plan / Payer (Ef fective for All Dates) Name:Silvio Patino Member ID:Not on file Relation to Subscriber:Not on file Name:SILVIO PATINO Subscriber ID:Not on file Address: [address] [place] [address] Payer ID:Not on file Group ID:Not on file Type:Self Pay Address: [place], [place] * Guarantor: SILVIO PATINO Account Type Relation to Patient Date of Phone Billing Address Personal/Family [address] [place] [address] [facility] SELF PAY NO INSURANCE Member Subscriber Plan / Payer (Ef fective for All Dates) Name:Silvio Patino Member ID:Not on file Relation to Subscriber:Not on file Name:SILVIO PATINO Subscriber ID:Not on file Address: [address] [place] [address] Payer ID:Not on file Group ID:Not on file Type:Self Pay Address: [place], [place] * Guarantor: SILVIO PATINO Account Type Relation to Patient Date of Phone Billing Address Personal/Family [address] [place] [address] [facility] SELF PAY NO INSURANCE Member Subscriber Plan / Payer (Ef fective for All Dates) Name:Silvio Patino Member ID:Not on file Relation to Subscriber:Not on file Name:SILVIO PATINO Subscriber ID:Not on file Address: [address] [place] [id number] Payer ID:Not on file Group ID:Not on file Type:Self Pay Address: [place], [place] Care Teams Staff Nurse Anesthetist Relationship Specialty Start Date End Date Sylvie Alvarenga MD [address] [place] [address] PCP - General 07/15/19
[2025-02-23 12:57] LABS: Hematocrit 33.3 % (37.0-47.0); Hemoglobin 11.0 g/dL (12.0-15.0); Immature Granulocyte Percent A 0.9 % (0-0.5); Lymphocytes Absolute Auto 2.56 K/mm3 (0.9-3.2); Mean Corpuscular HGB Conc 33.0 g/dl (32-36); Mean Corpuscular Hemoglobin 29.2 pg (26-34); Mean Corpuscular Volume 88.3 fl (80-100); Nucleated Red Blood Cells Absolute Auto 0.000 K/mm3 (0.0-0.012); Nucleated Red Blood Cells Perc 0.0 % (0.0-0.2); Platelet Count Result 249 k/mm3 (150-375); Red Blood Count 3.77 M/mm3 (4.2-5.4); White Blood Count 8.7 K/mm3 (4.5-10.0)
[2025-02-23 13:03] LABS: Add Urine Microscopic? YES; Appearance Urine Cloudy (Clear); Glucose Urine UA Negative (Negative); Leukocyte Esterase Ur Trace LEU/UL (Negative); Nitrate Urine Negative (Negative); Non Pathogenic Casts 0-2; Specific Grav Ur 1.009 (1.001-1.035)
--- OUTSIDE RECORDS SUMMARY | 2025-02-23 13:03 | XMS_ITS | Clinical Summary ---
Author Organization [facility] Address [address] [place] [address] Care Team Providers Care Meeting Manager Name Role Phone Fatimah Morales Primary Care Provider [phone] Allergies No known active allergies Medications calcium [...] more drinks on one occasion? Never 12/02/2021 [place] Depression Scale Answer Date Recorded [place] Depression Scale Total 3 12/03/2021 The thought [...] DOMINGUEZ Katy, MD Complications:None Delivery Location:[facility] ([facility]) Last [...] patient's age to complete this topic Insurance [facility] Advance Directives For more information, please contact: [phone] * Full Code (Latest Code Status on File) Date Activated Date Inactivated Comments 12/02/2021 8:18 PM 12/04/2021 7:25 PM * Full Code Date Activated Date Inactivated Comments 12/02/2021 2:24 AM 12/02/2021 8:18 PM Full CPR in case of cardiopulmonary arrest Care Teams Meeting Manager Relationship Specialty Start [place] [address] [place] [id number] PCP - General Physician [place] 11/09/21
--- OUTSIDE RECORDS SUMMARY | 2025-02-23 13:03 | XMS_ITS | Clinical Summary ---
Author Organization [facility] Address [address] [place] [place] [address] Care Team Providers Care Hydrologic Engineer Name Role Phone Sylvie Alvarenga MD Primary Care Provider [phone] Source Comments [facility],non-owned Affiliates and Associated Physician Practices is amultiple site organization consisting of ambulatory clinics and hospital sitesin [place], [place] and [place]. This disclosure is being madepursuant to the Care Everywhere program and may not contain all information available regarding this patient. 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 Inhaled Oxygen Concentration 50% 11/11/2009 3 :15 [...] patient's age to complete this topic Insurance [facility] * Guarantor: SILVIO PATINO Account Type Relation to Patient Date of Phone Billing Address Personal/Family [address] [place], [place] [id number] [place] [address] SELF PAY NO INSURANCE Member Subscriber Plan / Payer (Ef fective for All Dates) Name:Silvio Patino Member ID:Not on file Relation to Subscriber:Not on file Name:SILVIO PATINO Subscriber ID:Not on file Address: [address] [place] [address] Payer ID:Not on file Group ID:Not on file Type:Self Pay Address: [place], [place] * Guarantor: SILVIO PATINO Account Type Relation to Patient Date of Phone Billing Address Personal/Family [address] [place] [address] [facility] SELF PAY NO INSURANCE Member Subscriber Plan / Payer (Ef fective for All Dates) Name:Silvio Patino Member ID:Not on file Relation to Subscriber:Not on file Name:SILVIO PATINO Subscriber ID:Not on file Address: [address] [place] [address] Payer ID:Not on file Group ID:Not on file Type:Self Pay Address: [place], [place] * Guarantor: SILVIO PATINO Account Type Relation to Patient Date of Phone Billing Address Personal/Family [address] [place] [id number] [facility] SELF PAY NO INSURANCE Member Subscriber Plan / Payer (Ef fective for All Dates) Name:Silvio Patino Member ID:Not on file Relation to Subscriber:Not on file Name:SILVIO PATINO Subscriber ID:Not on file Address: [address] [place] [id number] Payer ID:Not on file Group ID:Not on file Type:Self Pay Address: [place], [place] Care Teams Hydrologic Engineer Relationship Specialty Start Date End Date Sylvie Alvarenga MD [address] [place] [address] PCP - General 07/15/19
[2025-02-23 13:22] LABS: Alanine Aminotransferase 95 U/L (6-35); Albumin Level 4.3 g/dL (3.5-5.1); Alkaline Phosphatase 58 U/L (38-126); Anion Gap 9 mmol/L (4-12); Aspartate Amino Transferase 64 U/L (14-36); Bilirubin,Total 0.5 mg/dL (0.2-1.3); Blood Urea Nitrogen 10 mg/dL (7-17); Calcium 9.0 mg/dL (8.4-10.2); Carbon Dioxide 22 mmol/L (22-30); Chloride 101 mmol/L (98-107); Estimated CRCL calculation 154 ml/min; Estimated Glomerular Filt Rate > 60; Glucose 111 mg/dL (65-110); Lipase 67 U/L (23-300); Potassium 3.5 mmol/L (3.4-5.0); Sodium 132 mmol/L (137-145); Total Protein 7.9 g/dL (6.3-8.2)
--- NOTE | 2025-02-23 13:33 | ED_ITS ---
HPI - Abdominal Pain General Chief Complaint: Abdominal Pain Stated Complaint: right sided abd pain Time Seen by Provider: 02/23/25 12:28 Source: patient Mode of arrival: ambulatory Limitations: no limitations History of Present Illness HPI narrative: This is a 24-year-old female that presents to the emergency department for vaginal bleeding in early . Reports she continues to have some spotty. Reports mild lower abdominal cramping/discomfort. Sent to the ER for an ultrasound. Denies any current pain. She believe she is about 5 weeks . Related Data Allergies Allergy/AdvReac Type Severity Reaction Status Date / Time No Known Allergies Allergy Verified 02/22/25 14:15 Review of Systems 2 Review of Systems: All systems reviewed & are unremarkable except as noted in HPI and below PMFSH Past Medical History Medical History Depression Anxiety Epigastric pain Nausea and vomiting in adult Choledocholithiasis Motion sickness Surgical History Surgical History Hx laparoscopic cholecystectomy Dr. Tc Carpio 12/30/23 History of ventricular septal defect repair Family History Family History Mother Thyroid cancer Social History Social History Smoking status: Never smoker Alcohol intake: current Drinks per week: 1 Substance use: never Do You Feel Safe in your Home?: Yes Lack of Transportation: No Lack of Food: Never True Current Housing: I Have Housing Concerned About Future Housing: No Difficulty Paying Gas/Electric Bills: No Difficulty Paying for Meds: No Currently Unemployed: No Education: Associate Degree Difficulty w/ Childcare or Family Care: No Spiritual care concerns: No Exam 2 Narrative: GENERAL: Well-appearing, well-nourished, and in no acute distress. HEAD: Normocephalic, atraumatic. EYES: EOMI. CHEST: Clear to auscultation. No respiratory distress. No wheezes rales or rhonchi HEART: Regular rate and rhythm. No murmur heard. Normal peripheral pulses. ABDOMEN: Soft, nontender, nondistended, normal active bowel sounds. EXTREMITIES: Normal range of motion. No edema. SKIN: Warm, dry, no rash. NEURO: No focal deficits. Alert and oriented x3. PSYCH: Normal mood and affect Course Consultations Consultation #1: Dr. Lewis has come to the ER to evaluate the patient. Patient will receive methotrexate injection Date: 02/23/25 Vital Signs Vital signs: Vital Signs Temperature 97.9 F 02/23/25 12:19 Pulse Rate 88 02/23/25 12:19 Respiratory Rate 18 02/23/25 12:19 Blood Pressure 134/63 02/23/25 12:19 Pulse Oximetry 98 02/23/25 12:19 Oxygen Delivery Room Air 02/23/25 12:19 Temperature 97.9 F 02/23/25 12:19 Pulse Rate 88 02/23/25 12:19 Respiratory Rate 18 02/23/25 12:19 Blood Pressure 134/63 02/23/25 12:19 Pulse Oximetry 98 02/23/25 12:19 Oxygen Delivery Room Air 02/23/25 12:19 MDM - Abdominal Pain MDM Narrative Medical decision making narrative: Patient presents to the emergency department for persistent vaginal bleeding in early . She is afebrile and nontoxic appearing. Her vitals are stable. Cbc without leukocytosis. Metabolic panel without concerning findings. Urine without evidence of infection. Quantitative beta HCG 4263. Obstetric ultrasound shows no evidence of intrauterine . Dr. Lewis has come to the ER to evaluate the patient. Patient will receive methotrexate injection per her instructions. She is to follow up in the clinic. Given orders for repeat blood work Differential Diagnosis Differential diagnosis: Likely other (ectopic , intrauterine ) Lab Data Attestation: I reviewed the patient's lab results. 02/23/25 12:45 02/23/25 12:45 Labs: Lab Results 02/23/25 02/23/25 02/23/25 Range/Units 12:28 12:45 12:45 WBC 8.7 (4.5-10.0) K/mm3 RBC 3.77 L (4.2-5.4) M/mm3 Hgb 11.0 L (12.0-15.0) g/dL Hct 33.3 L (37.0-47.0) % MCV 88.3 (80-100) fl MCH 29.2 (26-34) pg MCHC 33.0 (32-36) g/dl RDW 12.8 (11.5-14.5) % Plt Count 249 (150-375) k/mm3 MPV 8.8 (7.4-10.4) fl Immature Gran % (Auto) 0.9 H (0-0.5) % Neut % (Auto) 63.5 (45.5-73.1) % Lymph % (Auto) 29.6 (18.3-44.2) % [place] % (Auto) 4.2 (2.6-8.5) % Eos % (Auto) 1.5 (0-4.4) % Baso % (Auto) 0.3 (0.2-1.2) % Lymph # (Auto) 2.56 (0.9-3.2) K/mm3 [place] # (Auto) 0.4 (0.1-0.6) K/mm3 Eos # (Auto) 0.1 (0-0.3) K/mm3 Baso # (Auto) 0.0 (0.0-0.1) K/mm3 Abs Immat Gran (auto) 0.08 H (0.00-0.031) K/mm3 Absolute Neuts (auto) 5.5 (1.3-6.7) K/mm3 Absolute Nucleated RBC 0.000 (0.0-0.012) K/mm3 Nucleated RBC % 0.0 (0.0-0.2) % Sodium Cancelled 132 L Potassium Cancelled Chloride Carbon Dioxide Anion Gap BUN Creatinine Estim Creat Clear Calc Estimated GFR Glucose Calcium Total Bilirubin AST ALT Alkaline Phosphatase Total Protein Albumin Lipase Beta HCG, Quant mIU/ML Urine Color (Yellow) Urine Appearance (Clear) Urine pH (5.0-9.0) Ur Specific [place] (1.001-1.035) Urine Protein (Negative) mg/dL Urine Glucose (UA) (Negative) mg/dL Urine Ketones (Negative) mg/dL Ur Blood (Man) (Negative) Urine Nitrate (Negative) Urine Bilirubin (Negative) Urine Urobilinogen (<2.0) mg/dL Leukocyte Esterase Rfl (Negative) REAGAN/UL Urine RBC (0-2) /hpf Urine WBC (0-3) /hpf Ur Squamous Epith Cells (Few) /hpf Urine Bacteria /hpf Urine Casts POC Urine HCG, Qual Positive (Negative) 02/23/25 02/23/25 02/23/25 Range/Units 12:45 12:45 12:45 WBC (4.5-10.0) K/mm3 RBC (4.2-5.4) M/mm3 Hgb (12.0-15.0) g/dL Hct (37.0-47.0) % MCV (80-100) fl MCH (26-34) pg MCHC (32-36) g/dl RDW (11.5-14.5) % Plt Count (150-375) k/mm3 MPV (7.4-10.4) fl Immature Gran % (Auto) (0-0.5) % Neut % (Auto) (45.5-73.1) % Lymph % (Auto) (18.3-44.2) % [place] % (Auto) (2.6-8.5) % Eos % (Auto) (0-4.4) % Baso % (Auto) (0.2-1.2) % Lymph # (Auto) (0.9-3.2) K/mm3 [place] # (Auto) (0.1-0.6) K/mm3 Eos # (Auto) (0-0.3) K/mm3 Baso # (Auto) (0.0-0.1) K/mm3 Abs Immat Gran (auto) (0.00-0.031) K/mm3 Absolute Neuts (auto) (1.3-6.7) K/mm3 Absolute Nucleated RBC (0.0-0.012) K/mm3 Nucleated RBC % (0.0-0.2) % Sodium Potassium 3.5 Chloride Cancelled 101 Carbon Dioxide Cancelled 22 Anion Gap Cancelled BUN Creatinine Estim Creat Clear Calc Estimated GFR Glucose Calcium Total Bilirubin AST ALT Alkaline Phosphatase Total Protein Albumin Lipase Beta HCG, Quant mIU/ML Urine Color (Yellow) Urine Appearance (Clear) Urine pH (5.0-9.0) Ur Specific [place] (1.001-1.035) Urine Protein (Negative) mg/dL Urine Glucose (UA) (Negative) mg/dL Urine Ketones (Negative) mg/dL Ur Blood (Man) (Negative) Urine Nitrate (Negative) Urine Bilirubin (Negative) Urine Urobilinogen (<2.0) mg/dL Leukocyte Esterase Rfl (Negative) REAGAN/UL Urine RBC (0-2) /hpf Urine WBC (0-3) /hpf Ur Squamous Epith Cells (Few) /hpf Urine Bacteria /hpf Urine Casts POC Urine HCG, Qual (Negative) 02/23/25 02/23/25 02/23/25 Range/Units 12:45 12:45 12:45 WBC (4.5-10.0) K/mm3 RBC (4.2-5.4) M/mm3 Hgb (12.0-15.0) g/dL Hct (37.0-47.0) % MCV (80-100) fl MCH (26-34) pg MCHC (32-36) g/dl RDW (11.5-14.5) % Plt Count (150-375) k/mm3 MPV (7.4-10.4) fl Immature Gran % (Auto) (0-0.5) % Neut % (Auto) (45.5-73.1) % Lymph % (Auto) (18.3-44.2) % [place] % (Auto) (2.6-8.5) % Eos % (Auto) (0-4.4) % Baso % (Auto) (0.2-1.2) % Lymph # (Auto) (0.9-3.2) K/mm3 [place] # (Auto) (0.1-0.6) K/mm3 Eos # (Auto) (0-0.3) K/mm3 Baso # (Auto) (0.0-0.1) K/mm3 Abs Immat Gran (auto) (0.00-0.031) K/mm3 Absolute Neuts (auto) (1.3-6.7) K/mm3 Absolute Nucleated RBC (0.0-0.012) K/mm3 Nucleated RBC % (0.0-0.2) % Sodium Potassium Chloride Carbon Dioxide Anion Gap 9 BUN Cancelled 10 Creatinine Cancelled 0.55 L Estim Creat Clear Calc Cancelled Estimated GFR Glucose Calcium Total Bilirubin AST ALT Alkaline Phosphatase Total Protein Albumin Lipase Beta HCG, Quant mIU/ML Urine Color (Yellow) Urine Appearance (Clear) Urine pH (5.0-9.0) Ur Specific [place] (1.001-1.035) Urine Protein (Negative) mg/dL Urine Glucose (UA) (Negative) mg/dL Urine Ketones (Negative) mg/dL Ur Blood (Man) (Negative) Urine Nitrate (Negative) Urine Bilirubin (Negative) Urine Urobilinogen (<2.0) mg/dL Leukocyte Esterase Rfl (Negative) REAGAN/UL Urine RBC (0-2) /hpf Urine WBC (0-3) /hpf Ur Squamous Epith Cells (Few) /hpf Urine Bacteria /hpf Urine Casts POC Urine HCG, Qual (Negative) 02/23/25 02/23/25 02/23/25 Range/Units 12:45 12:45 12:45 WBC (4.5-10.0) K/mm3 RBC (4.2-5.4) M/mm3 Hgb (12.0-15.0) g/dL Hct (37.0-47.0) % MCV (80-100) fl MCH (26-34) pg MCHC (32-36) g/dl RDW (11.5-14.5) % Plt Count (150-375) k/mm3 MPV (7.4-10.4) fl Immature Gran % (Auto) (0-0.5) % Neut % (Auto) (45.5-73.1) % Lymph % (Auto) (18.3-44.2) % [place] % (Auto) (2.6-8.5) % Eos % (Auto) (0-4.4) % Baso % (Auto) (0.2-1.2) % Lymph # (Auto) (0.9-3.2) K/mm3 [place] # (Auto) (0.1-0.6) K/mm3 Eos # (Auto) (0-0.3) K/mm3 Baso # (Auto) (0.0-0.1) K/mm3 Abs Immat Gran (auto) (0.00-0.031) K/mm3 Absolute Neuts (auto) (1.3-6.7) K/mm3 Absolute Nucleated RBC (0.0-0.012) K/mm3 Nucleated RBC % (0.0-0.2) % Sodium Potassium Chloride Carbon Dioxide Anion Gap BUN Creatinine Estim Creat Clear Calc 154 Estimated GFR Cancelled > 60 Glucose Cancelled 111 H Calcium Cancelled Total Bilirubin AST ALT Alkaline Phosphatase Total Protein Albumin Lipase Beta HCG, Quant mIU/ML Urine Color (Yellow) Urine Appearance (Clear) Urine pH (5.0-9.0) Ur Specific [place] (1.001-1.035) Urine Protein (Negative) mg/dL Urine Glucose (UA) (Negative) mg/dL Urine Ketones (Negative) mg/dL Ur Blood (Man) (Negative) Urine Nitrate (Negative) Urine Bilirubin (Negative) Urine Urobilinogen (<2.0) mg/dL Leukocyte Esterase Rfl (Negative) REAGAN/UL Urine RBC (0-2) /hpf Urine WBC (0-3) /hpf Ur Squamous Epith Cells (Few) /hpf Urine Bacteria /hpf Urine Casts POC Urine HCG, Qual (Negative) 02/23/25 02/23/25 02/23/25 Range/Units 12:45 12:45 12:45 WBC (4.5-10.0) K/mm3 RBC (4.2-5.4) M/mm3 Hgb (12.0-15.0) g/dL Hct (37.0-47.0) % MCV (80-100) fl MCH (26-34) pg MCHC (32-36) g/dl RDW (11.5-14.5) % Plt Count (150-375) k/mm3 MPV (7.4-10.4) fl Immature Gran % (Auto) (0-0.5) % Neut % (Auto) (45.5-73.1) % Lymph % (Auto) (18.3-44.2) % [place] % (Auto) (2.6-8.5) % Eos % (Auto) (0-4.4) % Baso % (Auto) (0.2-1.2) % Lymph # (Auto) (0.9-3.2) K/mm3 [place] # (Auto) (0.1-0.6) K/mm3 Eos # (Auto) (0-0.3) K/mm3 Baso # (Auto) (0.0-0.1) K/mm3 Abs Immat Gran (auto) (0.00-0.031) K/mm3 Absolute Neuts (auto) (1.3-6.7) K/mm3 Absolute Nucleated RBC (0.0-0.012) K/mm3 Nucleated RBC % (0.0-0.2) % Sodium Potassium Chloride Carbon Dioxide Anion Gap BUN Creatinine Estim Creat Clear Calc Estimated GFR Glucose Calcium 9.0 Total Bilirubin Cancelled 0.5 AST Cancelled 64 H ALT Cancelled Alkaline Phosphatase Total Protein Albumin Lipase Beta HCG, Quant mIU/ML Urine Color (Yellow) Urine Appearance (Clear) Urine pH (5.0-9.0) Ur Specific [place] (1.001-1.035) Urine Protein (Negative) mg/dL Urine Glucose (UA) (Negative) mg/dL Urine Ketones (Negative) mg/dL Ur Blood (Man) (Negative) Urine Nitrate (Negative) Urine Bilirubin (Negative) Urine Urobilinogen (<2.0) mg/dL Leukocyte Esterase Rfl (Negative) REAGAN/UL Urine RBC (0-2) /hpf Urine WBC (0-3) /hpf Ur Squamous Epith Cells (Few) /hpf Urine Bacteria /hpf Urine Casts POC Urine HCG, Qual (Negative) 02/23/25 02/23/25 02/23/25 Range/Units 12:45 12:45 12:45 WBC (4.5-10.0) K/mm3 RBC (4.2-5.4) M/mm3 Hgb (12.0-15.0) g/dL Hct (37.0-47.0) % MCV (80-100) fl MCH (26-34) pg MCHC (32-36) g/dl RDW (11.5-14.5) % Plt Count (150-375) k/mm3 MPV (7.4-10.4) fl Immature Gran % (Auto) (0-0.5) % Neut % (Auto) (45.5-73.1) % Lymph % (Auto) (18.3-44.2) % [place] % (Auto) (2.6-8.5) % Eos % (Auto) (0-4.4) % Baso % (Auto) (0.2-1.2) % Lymph # (Auto) (0.9-3.2) K/mm3 [place] # (Auto) (0.1-0.6) K/mm3 Eos # (Auto) (0-0.3) K/mm3 Baso # (Auto) (0.0-0.1) K/mm3 Abs Immat Gran (auto) (0.00-0.031) K/mm3 Absolute Neuts (auto) (1.3-6.7) K/mm3 Absolute Nucleated RBC (0.0-0.012) K/mm3 Nucleated RBC % (0.0-0.2) % Sodium Potassium Chloride Carbon Dioxide Anion Gap BUN Creatinine Estim Creat Clear Calc Estimated GFR Glucose Calcium Total Bilirubin AST ALT 95 H Alkaline Phosphatase Cancelled 58 Total Protein Cancelled 7.9 Albumin Cancelled Lipase Beta HCG, Quant mIU/ML Urine Color (Yellow) Urine Appearance (Clear) Urine pH (5.0-9.0) Ur Specific [place] (1.001-1.035) Urine Protein (Negative) mg/dL Urine Glucose (UA) (Negative) mg/dL Urine Ketones (Negative) mg/dL Ur Blood (Man) (Negative) Urine Nitrate (Negative) Urine Bilirubin (Negative) Urine Urobilinogen (<2.0) mg/dL Leukocyte Esterase Rfl (Negative) REAGAN/UL Urine RBC (0-2) /hpf Urine WBC (0-3) /hpf Ur Squamous Epith Cells (Few) /hpf Urine Bacteria /hpf Urine Casts POC Urine HCG, Qual (Negative) 02/23/25 02/23/25 Range/Units 12:45 12:45 WBC (4.5-10.0) K/mm3 RBC (4.2-5.4) M/mm3 Hgb (12.0-15.0) g/dL Hct (37.0-47.0) % MCV (80-100) fl MCH (26-34) pg MCHC (32-36) g/dl RDW (11.5-14.5) % Plt Count (150-375) k/mm3 MPV (7.4-10.4) fl Immature Gran % (Auto) (0-0.5) % Neut % (Auto) (45.5-73.1) % Lymph % (Auto) (18.3-44.2) % [place] % (Auto) (2.6-8.5) % Eos % (Auto) (0-4.4) % Baso % (Auto) (0.2-1.2) % Lymph # (Auto) (0.9-3.2) K/mm3 [place] # (Auto) (0.1-0.6) K/mm3 Eos # (Auto) (0-0.3) K/mm3 Baso # (Auto) (0.0-0.1) K/mm3 Abs Immat Gran (auto) (0.00-0.031) K/mm3 Absolute Neuts (auto) (1.3-6.7) K/mm3 Absolute Nucleated RBC (0.0-0.012) K/mm3 Nucleated RBC % (0.0-0.2) % Sodium Potassium Chloride Carbon Dioxide Anion Gap BUN Creatinine Estim Creat Clear Calc Estimated GFR Glucose Calcium Total Bilirubin AST ALT Alkaline Phosphatase Total Protein Albumin 4.3 Lipase Cancelled 67 Beta HCG, Quant 4263.10 mIU/ML Urine Color Yellow (Yellow) Urine Appearance Cloudy H (Clear) Urine pH 5.5 (5.0-9.0) Ur Specific [place] 1.009 (1.001-1.035) Urine Protein Negative (Negative) mg/dL Urine Glucose (UA) Negative (Negative) mg/dL Urine Ketones Negative (Negative) mg/dL Ur Blood (Man) 1+ H (Negative) Urine Nitrate Negative (Negative) Urine Bilirubin Negative (Negative) Urine Urobilinogen 0.2 (<2.0) mg/dL Leukocyte Esterase Rfl Trace H (Negative) REAGAN/UL Urine RBC 0-2 (0-2) /hpf Urine WBC 0-5 (0-3) /hpf Ur Squamous Epith Cells None seen (Few) /hpf Urine Bacteria None seen /hpf Urine Casts 0-2 POC Urine HCG, Qual (Negative) Imaging Data Radiologist's impression: ITS Impressions Obstetrics Ultrasound 02/23/25 13:49 IMPRESSION: 1. No evidence of intrauterine . Differential diagnosis includes very early intrauterine , early loss, ectopic an anovulatory cycle or hormonal imbalance. Recommend follow-up with quantitative beta-hCG levels and ultrasound as clinically warranted. ADDENDUM: 02/23/25 7717 Correction: FINDINGS: There is NO intrauterine gestational sac or pole identified. Critical Care Time Critical Care Time Critical Care Time: No Discharge Plan Discharge Clinical Impression: , location unknown Patient Disposition: Home Condition: Stable Instructions: Ectopic (DC) Additional Instructions: Return to the ER if you experience fever, abdominal pain with nausea and vomiting, you are unable to keep down liquids or solids, you are soaking through a pad/hour, or any other symptoms that are concerning to you You have an order to repeat some blood work. Your OB would like this done on Saturday. I have sent some pain and nausea medication if needed Follow up with your OB Patient Language: Colombian Prescriptions: New ondansetron 4 mg tablet,disintegrating 4 mg PO Q8H PRN (Reason: nausea and vomiting) Qty: 14 0RF tramadol 50 mg tablet 50 mg PO Q6H PRN (Reason: pain) Qty: 14 0RF No Action metoclopramide HCl 10 mg tablet 10 mg PO Q6H PRN (Reason: nausea and vomiting) Qty: 14 0RF acetaminophen 500 mg capsule 500 mg PO Q6H PRN (Reason: pain) Qty: 14 0RF Other Ambulatory Orders: Beta HCG Quantitative (Routine) Timeframe: 3 Days Location: Determined by Patient Ordered By: Shayla Julien Complete Blood Count with Diff (Routine) Timeframe: 3 Days Location: Determined by Patient Ordered By: Shayla Julien Comprehensive Metabolic Panel (Routine) Timeframe: 3 Days Location: Determined by Patient Ordered By: Shayla Julien Follow-up/Referrals: UNKNOWN,DOCTOR [Primary Care Provider] - Stand Alone Forms: Work/School Release IP
[2025-02-23 13:39] LABS: Beta HCG Quantitative 4263.10 mIU/ML
--- NOTE | 2025-02-23 16:09 | WPDCN ---
Assessment and Plan Assessment and plan (1) Ectopic : Code(s): O00.90 - Unspecified ectopic without intrauterine Status: Acute Assessment and Plan: of unknown location. Patient was informed that her hCG is are not rising appropriately for normal and there is no intrauterine seen today which at her present hCG level should be seen. This is considered an ectopic . Discussed with her what an ectopic is and risk of ectopic if untreated to include . discussed treatment options to include methotrexate. Discussed how this works and risks to include Nausea, vomiting stomatitis liver dysfunction. risk of increasing abdominal pain which may occur 2-3 days after injection. Risk of needing another dose. Risk of rupture of the of unknown location during treatment and monitoring levels. Reviewed with her symptoms of rupture that she needs to return to the ED for. Recommend no vigorous activity, no sexual activity. The other option is diagnostic laparoscopy and removal of tissue if present. Risk of that is not being able to identify ectopic tissue and subsequent need for methotrexate. Her questions were answered. She agreed to do the methotrexate. She will follow up in office this week. Recommend not working until her period of treatment observation is complete. HPI Data of Consult Date/Time: 02/23/25 16:09 Primary Care Provider: UNKNOWN,DOCTOR Consult Narrative Reason for consult: Bleeding in early Narrative: Michelle Patino is a 24 year old female with a last period of 02/01/2025. She presented to the ED initially due to the prolonged period. She had hcg levels that were initially rising appropriately. Early ultrasounds no IUP which was consistent with the hcg level, no adnexal mass. She was followed with serial ultrasounds and HCG. Due to insurance issue she was not able to get stat ultrasound today which was recommended due to abnormally rising HCG levels and of unknown location. Ultrasound in ED was performed and again no IUP hCG level 4263. No adnexal mass. She denies any severe pain has some mild cramping on the right. She denies any history of significant liver disease. She had a recent cholecystectomy and subsequent ERCP and removal of CBD stone, the liver function test have significantly decreased from then, though mildly elevated. Denies any history of liver or kidney disease. [facility] Past Medical History Medical History Depression Anxiety Epigastric pain Nausea and vomiting in adult Choledocholithiasis Motion sickness Surgical History Surgical History Hx laparoscopic cholecystectomy Dr. Tc Carpio 12/30/23 History of ventricular septal defect repair Family History Family History Mother Thyroid cancer Social History Social History Smoking status: Never smoker Alcohol intake: current Drinks per week: 1 Substance use: never Do You Feel Safe in your Home?: Yes Lack of Transportation: No Lack of Food: Never True Current Housing: I Have Housing Concerned About Future Housing: No Difficulty Paying Gas/Electric Bills: No Difficulty Paying for Meds: No Currently Unemployed: No Education: Associate Degree Difficulty w/ Childcare or Family Care: No Spiritual care concerns: No Meds Home Medications and Allergies Home Medications ?Medication ?Instructions ?Recorded ?Confirmed ?Type acetaminophen 500 mg capsule 500 mg PO Q6H PRN pain #14 caps 02/09/25 02/22/25 Rx metoclopramide HCl 10 mg tablet 10 mg PO Q6H PRN nausea and 02/09/25 02/22/25 Rx vomiting #14 tabs ondansetron 4 mg disintegrating 4 mg PO Q8H PRN nausea and 02/23/25 Rx tablet vomiting #14 tabs tramadol 50 mg tablet 50 mg PO Q6H PRN pain #14 tabs 02/23/25 Rx Allergies Allergy/AdvReac Type Severity Reaction Status Date / Time No Known Allergies Allergy Verified 02/22/25 14:15 Vital Signs Vital Signs - 24 hr 02/23/25 12:19 Temperature 97.9 F Pulse Rate 88 Respiratory Rate 18 Blood Pressure 134/63 Pulse Oximetry 98 Oxygen Delivery Room Air Exam Const: General: comfortable and no acute distress HENMT: Head: normal to inspection Eyes: General: appearance normal, both eyes and all related structures Neck: Neck: normal visual inspection Resp: Effort & Inspection: normal respiratory effort Cardio: Rate: regular rate GI: Inspection: normal to inspection Other: soft, nondistended, no guarding or rebound, mild right lower tenderness Neuro: General: patient oriented x3 Results Labs 02/23/25 12:45 02/23/25 12:45 Labs: Short CBC 02/23/25 Range/Units 12:45 WBC 8.7 (4.5-10.0) K/mm3 Hgb 11.0 L (12.0-15.0) g/dL Hct 33.3 L (37.0-47.0) % Plt Count 249 (150-375) k/mm3 BMP 02/23/25 02/23/25 02/23/25 12:45 12:45 12:45 Sodium Cancelled 132 L Potassium Cancelled 3.5 Chloride Cancelled Carbon Dioxide BUN Creatinine Glucose Calcium 02/23/25 02/23/25 02/23/25 12:45 12:45 12:45 Sodium Potassium Chloride 101 Carbon Dioxide Cancelled 22 BUN Cancelled 10 Creatinine Cancelled Glucose Calcium 02/23/25 02/23/25 02/23/25 12:45 12:45 12:45 Sodium Potassium Chloride Carbon Dioxide BUN Creatinine 0.55 L Glucose Cancelled 111 H Calcium Cancelled 9.0 Liver Function 02/23/25 02/23/25 02/23/25 Range/Units 12:45 12:45 12:45 Total Bilirubin Cancelled 0.5 AST Cancelled 64 H ALT Cancelled Alkaline Phosphatase Albumin 02/23/25 02/23/25 02/23/25 Range/Units 12:45 12:45 12:45 Total Bilirubin AST ALT 95 H Alkaline Phosphatase Cancelled 58 Albumin Cancelled 4.3 Urine 02/23/25 Range/Units 12:45 Urine Color Yellow (Yellow) Urine Appearance Cloudy H (Clear) Urine pH 5.5 (5.0-9.0) Ur Specific [place] 1.009 (1.001-1.035) Urine Protein Negative (Negative) mg/dL Urine Glucose (UA) Negative (Negative) mg/dL
[2025-02-23] MEDS: METHOTREXATE SODIUM/PF 50 MG/2 ML VIAL 52 MG IM ×2 (17:44)
== END 2025-02-23 18:10 | disposition home or self-care (01) ==
PROVIDERS: Emergency Provider Physician Assistant
DX: O20.9 Hemorrhage in early pregnancy, unspecified (principal); R10.30 Lower abdominal pain, unspecified; Z3A.01 Less than 8 weeks gestation of pregnancy
CPT/HCPCS: 36415; 76801; 76817; 80053; 81001; 81025; 83690; 84702; 85025; 96372; 99284; J9260

== ENCOUNTER 2025-02-26 11:55 | Outpatient (CLI) | payer OTHER, SELFPAY ==
--- OUTSIDE RECORDS SUMMARY | 2025-02-26 12:00 | XMS_ITS | Clinical Summary ---
Author Organization [facility] Address [address] [place] [address] Care Team Providers Care Casing In Line Feeder Name Role Phone Sylvie Alvarenga MD Primary Care Provider [phone] Source Comments [facility],non-owned Affiliates and Associated Physician Practices is amultiple site organization consisting of ambulatory clinics and hospital sitesin [place], [place], [place] and [place]. This disclosure is being madepursuant to the Care Everywhere program and may not contain all information available regarding this patient. 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 Gender Identity Not on file Sexual Orientation Not on file Last Filed Vital Signs Vital Sign Reading Time Taken Comments Blood Pressure 127/67 10/12/2021 2:36 PM CDT Pulse 76 10/12/2021 2:36 PM CDT Temperature 37.1 C (98.7 F) 07/13/2019 6:36 PM FLEET MANAGER Respiratory Rate 18 10/12/2021 2:36 PM CDT Oxygen Saturation 99% 07/13/2019 6:36 PM FLEET MANAGER Inhaled Oxygen Concentration 50% 11/11/2009 3 :15 [...] patient's age to complete this topic Insurance [facility] * Guarantor: SILVIO PATINO Account Type Relation to Patient Date of Phone Billing Address Personal/Family [address] [place], [place] [id number] [place] [address] SELF PAY NO INSURANCE Member Subscriber Plan / Payer (Ef fective for All Dates) Name:Silvio Patino Member ID:Not on file Relation to Subscriber:Not on file Name:SILVIO PATINO Subscriber ID:Not on file Address: [address] [place] [address] Payer ID:Not on file Group ID:Not on file Type:Self Pay Address: [place], [place] * Guarantor: SILVIO PATINO Account Type Relation to Patient Date of Phone Billing Address Personal/Family [address] [place] [address] [facility] SELF PAY NO INSURANCE Member Subscriber Plan / Payer (Ef fective for All Dates) Name:Silvio Patino Member ID:Not on file Relation to Subscriber:Not on file Name:SILVIO PATINO Subscriber ID:Not on file Address: [address] [place] [address] Payer ID:Not on file Group ID:Not on file Type:Self Pay Address: [place], [place] * Guarantor: SILVIO PATINO Account Type Relation to Patient Date of Phone Billing Address Personal/Family [address] [place] [address] [facility] SELF PAY NO INSURANCE Member Subscriber Plan / Payer (Ef fective for All Dates) Name:Silvio Patino Member ID:Not on file Relation to Subscriber:Not on file Name:SILVIO PATINO Subscriber ID:Not on file Address: [address] [place] [id number] Payer ID:Not on file Group ID:Not on file Type:Self Pay Address: [place], [place] Care Teams Casing In Line Feeder Relationship Specialty Start Date End Date Sylvie Alvarenga MD [address] [facility] [address] [place] [address] PCP - General 07/15/19
--- OUTSIDE RECORDS SUMMARY | 2025-02-26 12:00 | XMS_ITS | Clinical Summary ---
Author Organization [facility] Address [address] [place] [address] Care Team Providers Care Passenger Car Upholsterer Apprentice Name Role Phone Fatimah Morales Primary Care Provider [phone] Allergies No known active allergies Medications calcium [...] more drinks on one occasion? Never 12/02/2021 [place] Depression Scale Answer Date Recorded [place] Depression Scale Total 3 12/03/2021 The thought [...] 9 Stacey DOMINGUEZ Katy, MD Complications:None Delivery Location:[facility] ([facility]) Last Filed Vital Signs [...] patient's age to complete this topic Insurance [facility] Advance Directives For more information, please contact: [phone] * Full Code (Latest Code Status on File) Date Activated Date Inactivated Comments 12/02/2021 8:18 PM 12/04/2021 7:25 PM * Full Code Date Activated Date Inactivated Comments 12/02/2021 2:24 AM 12/02/2021 8:18 PM Full CPR in case of cardiopulmonary arrest Care Teams Passenger Car Upholsterer Apprentice Relationship Specialty [place] [address] [place] [id number] PCP - General Physician Housekeeping And Laundry Team Leader 11/09/21
[2025-02-26 12:11] LABS: Hematocrit 33.4 % (37.0-47.0); Hemoglobin 11.3 g/dL (12.0-15.0); Immature Granulocyte Percent A 0.2 % (0-0.5); Lymphocytes Absolute Auto 2.12 K/mm3 (0.9-3.2); Mean Corpuscular HGB Conc 33.8 g/dl (32-36); Mean Corpuscular Hemoglobin 29.8 pg (26-34); Mean Corpuscular Volume 88.1 fl (80-100); Nucleated Red Blood Cells Absolute Auto 0.000 K/mm3 (0.0-0.012); Nucleated Red Blood Cells Perc 0.0 % (0.0-0.2); Platelet Count Result 284 k/mm3 (150-375); Red Blood Count 3.79 M/mm3 (4.2-5.4); White Blood Count 8.2 K/mm3 (4.5-10.0)
[2025-02-26 12:43] LABS: Alanine Aminotransferase 155 U/L (6-35); Albumin Level 4.4 g/dL (3.5-5.1); Alkaline Phosphatase 60 U/L (38-126); Anion Gap 9 mmol/L (4-12); Aspartate Amino Transferase 79 U/L (14-36); Bilirubin,Total 1.0 mg/dL (0.2-1.3); Blood Urea Nitrogen 11 mg/dL (7-17); Calcium 9.2 mg/dL (8.4-10.2); Carbon Dioxide 24 mmol/L (22-30); Chloride 101 mmol/L (98-107); Estimated Glomerular Filt Rate > 60; Glucose 106 mg/dL (65-110); Potassium 4.1 mmol/L (3.4-5.0); Sodium 134 mmol/L (137-145); Total Protein 8.4 g/dL (6.3-8.2)
[2025-02-26 12:55] LABS: Beta HCG Quantitative 4922.80 mIU/ML
== END 2025-02-26 11:56 | disposition home or self-care (01) ==
LOC: ANHLAB 11:57
PROVIDERS: Visit Provider Physician Assistant
DX: O36.80X0 Pregnancy with inconclusive fetal viability, not applicable or unspecified (principal); Z3A.00 Weeks of gestation of pregnancy not specified
CPT/HCPCS: 36415; 80053; 84702; 85025

== ENCOUNTER 2025-03-02 12:42 | Outpatient (CLI) | payer OTHER, SELFPAY ==
--- OUTSIDE RECORDS SUMMARY | 2025-03-02 12:48 | XMS_ITS | Clinical Summary ---
Author Organization [facility] Address [address] [place] [address] Care Team Providers Care Retrieval Specialist Name Role Phone Sylvie Alvarenga MD Primary Care Provider [phone] Source Comments [facility],non-owned Affiliates and Associated Physician Practices is amultiple site organization consisting of ambulatory clinics and hospital sitesin [place], [place], [place] and [place]. This disclosure is being madepursuant to the Care Everywhere program and may not contain all information available regarding this patient. 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 Gender Identity Not on file Sexual Orientation Not on file Last Filed Vital Signs Vital Sign Reading Time Taken Comments Blood Pressure 127/67 10/12/2021 2:36 PM CDT Pulse 76 10/12/2021 2:36 PM CDT Temperature 37.1 C (98.7 F) 07/13/2019 6:36 PM EFFICIENCY EXPERT Respiratory Rate 18 10/12/2021 2:36 PM CDT Oxygen Saturation 99% 07/13/2019 6:36 PM EFFICIENCY EXPERT Inhaled Oxygen Concentration 50% 11/11/2009 3 :15 [...] patient's age to complete this topic Insurance [facility] * Guarantor: SILVIO PATINO Account Type Relation to Patient Date of Phone Billing Address Personal/Family [address] [place], [place] [id number] [place] [address] SELF PAY NO INSURANCE Member Subscriber Plan / Payer (Ef fective for All Dates) Name:Silvio Patino Member ID:Not on file Relation to Subscriber:Not on file Name:SILVIO PATINO Subscriber ID:Not on file Address: [address] [place] [address] Payer ID:Not on file Group ID:Not on file Type:Self Pay Address: [place], [place] * Guarantor: SILVIO PATINO Account Type Relation to Patient Date of Phone Billing Address Personal/Family [address] [place] [address] [facility] SELF PAY NO INSURANCE Member Subscriber Plan / Payer (Ef fective for All Dates) Name:Silvio Patino Member ID:Not on file Relation to Subscriber:Not on file Name:SILVIO PATINO Subscriber ID:Not on file Address: [address] [place] [address] Payer ID:Not on file Group ID:Not on file Type:Self Pay Address: [place], [place] * Guarantor: SILVIO PATINO Account Type Relation to Patient Date of Phone Billing Address Personal/Family [address] [place] [id number] [facility] SELF PAY NO INSURANCE Member Subscriber Plan / Payer (Ef fective for All Dates) Name:Silvio Patino Member ID:Not on file Relation to Subscriber:Not on file Name:SILVIO PATINO Subscriber ID:Not on file Address: [address] [place] [id number] Payer ID:Not on file Group ID:Not on file Type:Self Pay Address: [place], [place] Care Teams Retrieval Specialist Relationship Specialty Start Date End Date Sylvie Alvarenga MD [address] [facility] [address] [place] [address] PCP - General 07/15/19
--- OUTSIDE RECORDS SUMMARY | 2025-03-02 12:48 | XMS_ITS | Clinical Summary ---
Author Organization [facility] Address [address] [place] [address] Care Team Providers Care Wood Calker Name Role Phone Fatimah Morales Primary Care Provider [phone] Allergies No known active allergies Medications calcium [...] drinks on one occasion? Never 12/02/2021 [place] Depression Scale Answer Date Recorded [place] Depression Scale Total 3 12/03/2021 The thought [...] 9 Stacey DOMINGUEZ Katy, MD Complications:None Delivery Location:[facility] ([facility]) Last Filed Vital Signs Vital [...] patient's age to complete this topic Insurance [facility] Advance Directives For more information, please contact: [phone] * Full Code (Latest Code Status on File) Date Activated Date Inactivated Comments 12/02/2021 8:18 PM 12/04/2021 7:25 PM * Full Code Date Activated Date Inactivated Comments 12/02/2021 2:24 AM 12/02/2021 8:18 PM Full CPR in case of cardiopulmonary arrest Care Teams Wood Calker Relationship Specialty [place] [address] [place] [id number] PCP - General Physician Podiatry Assistant 11/09/21
[2025-03-02 12:59] LABS: Hematocrit 35.4 % (37.0-47.0); Hemoglobin 11.6 g/dL (12.0-15.0); Mean Corpuscular HGB Conc 32.8 g/dl (32-36); Mean Corpuscular Hemoglobin 29.3 pg (26-34); Mean Corpuscular Volume 89.4 fl (80-100); Platelet Count Result 351 k/mm3 (150-375); Red Blood Count 3.96 M/mm3 (4.2-5.4); White Blood Count 8.0 K/mm3 (4.5-10.0)
[2025-03-02 15:09] LABS: Alanine Aminotransferase 93 U/L (6-35); Albumin Level 4.4 g/dL (3.5-5.1); Alkaline Phosphatase 49 U/L (38-126); Aspartate Amino Transferase 60 U/L (14-36); Bilirubin,Total 0.5 mg/dL (0.2-1.3); Total Protein 8.7 g/dL (6.3-8.2)
[2025-03-02 15:25] LABS: Beta HCG Quantitative 3899.90 mIU/ML
== END 2025-03-02 12:43 | disposition home or self-care (01) ==
PROVIDERS: Visit Provider Obstetrics & Gynecology
DX: O00.90 Unspecified ectopic pregnancy without intrauterine pregnancy (principal); Z3A.00 Weeks of gestation of pregnancy not specified
CPT/HCPCS: 36415; 80076; 84702; 85027

== ENCOUNTER 2025-03-11 10:16 | Outpatient (CLI) | payer OTHER, SELFPAY ==
--- OUTSIDE RECORDS SUMMARY | 2025-03-11 10:23 | XMS_ITS | Clinical Summary ---
Author Organization [facility] Address [address] [place] [address] Care Team Providers Care Caser Up Name Role Phone Fatimah Morales Primary Care Provider [phone] Allergies No known active allergies Medications calcium [...] more drinks on one occasion? Never 12/02/2021 [place] Depression Scale Answer Date Recorded [place] Depression Scale Total 3 12/03/2021 The thought [...] MD Complications:None Delivery Location:[facility] ([facility]) Last Filed Vital Signs Vital [...] patient's age to complete this topic Insurance [facility] Advance Directives For more information, please contact: [phone] * Full Code (Latest Code Status on File) Date Activated Date Inactivated Comments 12/02/2021 8:18 PM 12/04/2021 7:25 PM * Full Code Date Activated Date Inactivated Comments 12/02/2021 2:24 AM 12/02/2021 8:18 PM Full CPR in case of cardiopulmonary arrest Care Teams Caser Up Relationship Specialty [place] [address] [place] [id number] PCP - General Physician Supervisor Bakery Sanitation 11/09/21
--- OUTSIDE RECORDS SUMMARY | 2025-03-11 10:24 | XMS_ITS | Clinical Summary ---
Author Organization [facility] Address [address] [facility] [address] Care Team Providers Care Brass Plater Name Role Phone Sylvie Alvarenga MD Primary Care Provider [phone] Source Comments [facility],non-owned Affiliates and Associated Physician Practices is amultiple site organization consisting of ambulatory clinics and hospital sitesin [place], [place], [place] and [place]. This disclosure is being madepursuant to the Care Everywhere program and may not contain all information available regarding this patient. 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 Gender Identity Not on file Sexual Orientation Not on file Last Filed Vital Signs Vital Sign Reading Time Taken Comments Blood Pressure 127/67 10/12/2021 2:36 PM CDT Pulse 76 10/12/2021 2:36 PM CDT Temperature 37.1 C (98.7 F) 07/13/2019 6:36 PM LEGAL FILE CLERK Respiratory Rate 18 10/12/2021 2:36 PM CDT Oxygen Saturation 99% 07/13/2019 6:36 PM LEGAL FILE CLERK Inhaled Oxygen Concentration 50% 11/11/2009 3 :15 [...] to complete this topic Insurance [facility] * Guarantor: SILVIO PATINO Account Type Relation to Patient Date of Phone Billing Address Personal/Family [address] [place], [place] [id number] [place] [address] SELF PAY NO INSURANCE Member Subscriber Plan / Payer (Ef fective for All Dates) Name:Silvio Patino Member ID:Not on file Relation to Subscriber:Not on file Name:SILVIO PATINO Subscriber ID:Not on file Address: [address] [place] [address] Payer ID:Not on file Group ID:Not on file Type:Self Pay Address: [place], [place] * Guarantor: SILVIO PATINO Account Type Relation to Patient Date of Phone Billing Address Personal/Family [address] [place] [address] [facility] SELF PAY NO INSURANCE Member Subscriber Plan / Payer (Ef fective for All Dates) Name:Silvio Patino Member ID:Not on file Relation to Subscriber:Not on file Name:SILVIO PATINO Subscriber ID:Not on file Address: [address] [place] [address] Payer ID:Not on file Group ID:Not on file Type:Self Pay Address: [place], [place] * Guarantor: SILVIO PATINO Account Type Relation to Patient Date of Phone Billing Address Personal/Family [address] [place] [id number] [facility] SELF PAY NO INSURANCE Member Subscriber Plan / Payer (Ef fective for All Dates) Name:Silvio Patino Member ID:Not on file Relation to Subscriber:Not on file Name:SILVIO PATINO Subscriber ID:Not on file Address: [address] [place] [id number] Payer ID:Not on file Group ID:Not on file Type:Self Pay Address: [place], [place] Care Teams Brass Plater Relationship Specialty Start Date End Date Sylvie Alvarenga MD [address] [facility] [address] [place] [address] PCP - General 07/15/19
[2025-03-11 11:09] LABS: Beta HCG Quantitative 160.52 mIU/ML
== END 2025-03-11 10:17 | disposition home or self-care (01) ==
LOC: ANHLAB 10:17
PROVIDERS: Visit Provider Obstetrics & Gynecology
DX: O20.0 Threatened abortion (principal)
CPT/HCPCS: 36415; 84702

== ENCOUNTER 2025-03-19 08:30 | Outpatient (CLI) | payer OTHER, SELFPAY ==
--- OUTSIDE RECORDS SUMMARY | 2025-03-19 08:41 | XMS_ITS | Clinical Summary ---
Author Organization [facility] Address [address] [place] [address] Care Team Providers Care Architectural Administrative Assistant Name Role Phone Fatimah Morales Primary Care Provider [phone] Allergies No known active allergies Medications calcium [...] more drinks on one occasion? Never 12/02/2021 [place] Depression Scale Answer Date Recorded [place] Depression Scale Total 3 12/03/2021 The thought [...] 9 Stacey DOMINGUEZ Katy, MD Complications:None Delivery Location:[facility] ([facility]) Last Filed Vital Signs Vital [...] Advance Directives For more information, please contact: [phone] * Full Code (Latest Code Status on File) Date Activated Date Inactivated Comments 12/02/2021 8:18 PM 12/04/2021 7:25 PM * Full Code Date Activated Date Inactivated Comments 12/02/2021 2:24 AM 12/02/2021 8:18 PM Full CPR in case of cardiopulmonary arrest Care Teams Architectural Administrative Assistant Relationship Specialty Start [place] [address] [place] [id number] PCP - General Physician Nursing Assistant 11/09/21
--- OUTSIDE RECORDS SUMMARY | 2025-03-19 08:41 | XMS_ITS | Clinical Summary ---
Author Organization [facility] Address [address] [place] [address] Care Team Providers Care Food Service Hotel Runner Name Role Phone Sylvie Alvarenga MD Primary Care Provider [phone] Source Comments [facility],non-owned Affiliates and Associated Physician Practices is amultiple site organization consisting of ambulatory clinics and hospital sitesin [place], [place], [place] and [place]. This disclosure is being madepursuant to the Care Everywhere program and may not contain all information available regarding this patient. 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 Gender Identity Not on file Sexual Orientation Not on file Last Filed Vital Signs Vital Sign Reading Time Taken Comments Blood Pressure 127/67 10/12/2021 2:36 PM CDT Pulse 76 10/12/2021 2:36 PM CDT Temperature 37.1 C (98.7 F) 07/13/2019 6:36 PM AMORTIZATION SCHEDULE CLERK Respiratory Rate 18 10/12/2021 2:36 PM CDT Oxygen Saturation 99% 07/13/2019 6:36 PM AMORTIZATION SCHEDULE CLERK Inhaled Oxygen Concentration 50% 11/11/2009 3 [...] 19+ 3-dose series) 2018 PAP SMEAR 2020 DEPRESSION SCREENING 07/15/2024 COVID-19 VACCINE (3 - 2024-2 6 season) 2025 11/04/2020, 10/14/2020 INFLUENZA VACCINE (#1) 2025 7, 04/07/2016 ZOSTER [...] patient's age to complete this topic Insurance [facility] * Guarantor: SILVIO PATINO Account Type Relation to Patient Date of Phone Billing Address Personal/Family [address] [place], [place] [id number] [place] [address] SELF PAY NO INSURANCE Member Subscriber Plan / Payer (Ef fective for All Dates) Name:Silvio Patino Member ID:Not on file Relation to Subscriber:Not on file Name:SILVIO PATINO Subscriber ID:Not on file Address: [address] [place] [address] Payer ID:Not on file Group ID:Not on file Type:Self Pay Address: [place], [place] * Guarantor: SILVIO PATINO Account Type Relation to Patient Date of Phone Billing Address Personal/Family [address] [place] [address] [facility] SELF PAY NO INSURANCE Member Subscriber Plan / Payer (Ef fective for All Dates) Name:Silvio Patino Member ID:Not on file Relation to Subscriber:Not on file Name:SILVIO PATINO Subscriber ID:Not on file Address: [address] [place] [address] Payer ID:Not on file Group ID:Not on file Type:Self Pay Address: [place], [place] * Guarantor: SILVIO PATINO Account Type Relation to Patient Date of Phone Billing Address Personal/Family [address] [place] [id number] [facility] SELF PAY NO INSURANCE Member Subscriber Plan / Payer (Ef fective for All Dates) Name:Silvio Patino Member ID:Not on file Relation to Subscriber:Not on file Name:SILVIO PATINO Subscriber ID:Not on file Address: [address] [place] [id number] Payer ID:Not on file Group ID:Not on file Type:Self Pay Address: [place], [place] Care Teams Food Service Hotel Runner Relationship Specialty Start Date End Date Sylvie Alvarenga MD [address] [facility] [address] [place] [address] PCP - General 07/15/19
[2025-03-19 09:28] LABS: Beta HCG Quantitative 7.21 mIU/ML
== END 2025-03-19 08:31 | disposition home or self-care (01) ==
LOC: ANHLAB 08:31
PROVIDERS: Visit Provider Obstetrics & Gynecology
DX: O00.90 Unspecified ectopic pregnancy without intrauterine pregnancy (principal); Z3A.00 Weeks of gestation of pregnancy not specified
CPT/HCPCS: 36415; 84702

== ENCOUNTER 2025-04-02 09:35 | Outpatient (CLI) | payer OTHER, SELFPAY ==
--- OUTSIDE RECORDS SUMMARY | 2025-04-02 09:38 | XMS_ITS | Clinical Summary ---
Author Organization [facility] Address [address] [place] [address] Care Team Providers Care Dot Compliance Specialist Name Role Phone Fatimah Morales Primary Care Provider [phone] Allergies No known active allergies Medications calcium [...] more drinks on one occasion? Never 12/02/2021 [place] Depression Scale Answer Date Recorded [place] Depression Scale Total 3 12/03/2021 The thought [...] Complications:None Delivery Location:[facility] ([facility]) Last Filed Vital Signs Vital Sign [...] Screening 12/03/2022 12/03/2021 Covid-19 Vaccine (3 - 2024-2 6 season) 2025 11/04/2020, 10/14/2020 Influenza Vaccine (#1) 2025 , 04/15/2017, 04/07/2016 DTaP/Tdap/Td Vaccine (3 - Td or Tdap) 09/22/2031 09/21/2021, 02/07/2015 HPV Vaccines Completed 04/07/2016, 02/07/2015, 01/26/2014 Varicella Vaccines Completed 04/07/2016, 02/07/2015, 01/26/2014 Pneumococcal vaccine <65 Aged Out No longer eligible based on patient's age to complete this topic Insurance * Guarantor: Michelle Patino Account Type Relation to Patient Date of Phone Billing Address Personal/Family Self [address] [place] [id number] [facility] Advance Directives For more information, please contact: [phone] * Full Code (Latest Code Status on File) Date Activated Date Inactivated Comments 12/02/2021 8:18 PM 12/04/2021 7:25 PM * Full Code Date Activated Date Inactivated Comments 12/02/2021 2:24 AM 12/02/2021 8:18 PM Full CPR in case of cardiopulmonary arrest Care Teams Dot Compliance Specialist Relationship Specialty [place] [address] [place] [id number] PCP - General Physician Financial Planner 11/09/21
--- OUTSIDE RECORDS SUMMARY | 2025-04-02 09:38 | XMS_ITS | Clinical Summary ---
Author Organization [facility] Address [address] [facility] [place] [address] Care Team Providers Care Dealer Relationship Manager Name Role Phone Sylvie Alvarenga MD Primary Care Provider [phone] Source Comments [facility],non-owned Affiliates and Associated Physician Practices is amultiple site organization consisting of ambulatory clinics and hospital sitesin [place], [place], [place] and [place]. This disclosure is being madepursuant to the Care Everywhere program and may not contain all information available regarding this patient. 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 Gender Identity Not on file Sexual Orientation Not on file Last Filed Vital Signs Vital Sign Reading Time Taken Comments Blood Pressure 127/67 10/12/2021 2:36 PM CDT Pulse 76 10/12/2021 2:36 PM CDT Temperature 37.1 C (98.7 F) 07/13/2019 6:36 PM METAL TESTER Respiratory Rate 18 10/12/2021 2:36 PM CDT Oxygen Saturation 99% 07/13/2019 6:36 PM METAL TESTER Inhaled Oxygen Concentration 50% 11/11/2009 3 :15 [...] patient's age to complete this topic Insurance [facility] * Guarantor: SILVIO PATINO Account Type Relation to Patient Date of Phone Billing Address Personal/Family [address] [place], [place] [phone] [place] [address] SELF PAY NO INSURANCE Member Subscriber Plan / Payer (Ef fective for All Dates) Name:Silvio Patino Member ID:Not on file Relation to Subscriber:Not on file Name:SILVIO PATINO Subscriber ID:Not on file Address: [address] [place] [address] Payer ID:Not on file Group ID:Not on file Type:Self Pay Address: [place], [place] * Guarantor: SILVIO PATINO Account Type Relation to Patient Date of Phone Billing Address Personal/Family [address] [place] [address] [facility] SELF PAY NO INSURANCE Member Subscriber Plan / Payer (Ef fective for All Dates) Name:Silvio Patino Member ID:Not on file Relation to Subscriber:Not on file Name:SILVIO PATINO Subscriber ID:Not on file Address: [address] [place] [address] Payer ID:Not on file Group ID:Not on file Type:Self Pay Address: [place], [place] * Guarantor: SILVIO PATINO Account Type Relation to Patient Date of Phone Billing Address Personal/Family [address] [place] [id number] [facility] SELF PAY NO INSURANCE Member Subscriber Plan / Payer (Ef fective for All Dates) Name:Silvio Patino Member ID:Not on file Relation to Subscriber:Not on file Name:SILVIO PATINO Subscriber ID:Not on file Address: [address] [place] [id number] Payer ID:Not on file Group ID:Not on file Type:Self Pay Address: [place], [place] Care Teams Dealer Relationship Manager Relationship Specialty Start Date End Date Sylvie Alvarenga MD [address] [facility] [address] [place] [address] PCP - General 07/15/19
[2025-04-02 11:08] LABS: Beta HCG Quantitative < 2.39 mIU/ML
== END 2025-04-02 09:36 | disposition home or self-care (01) ==
LOC: ANHLAB 09:36
PROVIDERS: Visit Provider Obstetrics & Gynecology
DX: O00.90 Unspecified ectopic pregnancy without intrauterine pregnancy (principal)
CPT/HCPCS: 36415; 84702

== ENCOUNTER 2025-06-21 09:36 | Outpatient (CLI) | payer OTHER, SELFPAY ==
[2025-06-21 10:28] LABS: Hemoglobin A1C 5.3 % (<5.7)
[2025-06-21 10:42] LABS: Alanine Aminotransferase 100 U/L (6-35); Albumin Level 4.5 g/dL (3.5-5.1); Alkaline Phosphatase 80 U/L (38-126); Anion Gap 8 mmol/L (4-12); Aspartate Amino Transferase 61 U/L (14-36); Bilirubin,Total 0.5 mg/dL (0.2-1.3); Blood Urea Nitrogen 15 mg/dL (7-17); Calcium 9.2 mg/dL (8.4-10.2); Carbon Dioxide 23 mmol/L (22-30); Chloride 105 mmol/L (98-107); Cholesterol 173 mg/dL (0-200); Estimated Glomerular Filt Rate > 60; Glucose 95 mg/dL (65-110); HDL Direct 54 mg/dL; Potassium 4.0 mmol/L (3.4-5.0); Sodium 136 mmol/L (137-145); Total Protein 8.8 g/dL (6.3-8.2); Triglycerides 81 mg/dL (<150)
[2025-06-21 11:13] LABS: Thyroid Stimulating Hormone Reflex 2.980 uIU/mL (0.465-4.68)
[2025-06-22 07:09] LABS: FSH 1.1 mIU/mL (.); LH 3.7 mIU/mL (.)
[2025-06-23 23:07] LABS: Free Testosterone (Direct) 2.0 pg/mL (0.0-4.2)
== END 2025-06-21 09:37 | disposition home or self-care (01) ==
LOC: ANHLAB 09:37
PROVIDERS: Visit Provider Obstetrics & Gynecology
DX: E28.2 Polycystic ovarian syndrome (principal)
CPT/HCPCS: 36415; 80053; 80061; 83001; 83002; 83036; 84144; 84146; 84402; 84403; 84443